=== PATIENT | male | born 1950 | race Caucasian/White ===

== ENCOUNTER 2023-12-30 21:08 | Emergency (ER) | payer OTHER, SELFPAY ==
[2023-12-30 21:14] VITALS: BP 134/88
--- NOTE | 2023-12-30 21:55 | ED.GENMED ---
History of Present Illness
General
Chief Complaint: Swelling
Time Seen by Provider: 12/30/23 21:55
Travel History
Have you had any contact with someone who has COVID-19?: No
Do you have any symptoms of coronavirus? Fever > 100 degrees, chills, cough, shortness of breath, sore throat, loss of taste or smell, muscle aches, or headache?: No
History of Present Illness
History of Present Illness:
HPI: The patient presents due to left ankle swelling. He lives in [place] and went to urgent care after he flew here (stop over in [place] and did get up to walk around in the plane). Urgent care apparently had trouble finding a pulse of the
left foot. He had a nurse evaluate him in person who could feel a pulse. He ultimately was encouraged to come here for further evaluation. states that his swelling is significantly improved currently compared to prior
EXAM:
GENERAL: Well appearing in no distress
HEENT: Moist oral mucosa
ABDOMEN: Soft with no peritoneal signs, no tenderness, elevated BMI
NEUROLOGIC: Excellent strength all extremities, no coordination deficits
PSYCHIATRIC: Appropriate mental status, normal insight and judgement
EXTREMITIES: Mild left ankle/calf edema compared to the right, no significant pitting, I did have trouble palpating the left DP pulse however this was fairly easily Doppler, the cap refill was normal bilateral feet
SKIN: No rash, no lesions
ED COURSE:
10:20 PM: I initially evaluated
NUMBER AND COMPLEXITY OF PROBLEMS ADDRESSED AT THE ENCOUNTER
� Chronic conditions affecting care: High blood pressure
� Acute Exacerbation and/or Progression of Chronic Illness: This is an acute problem
� Differential Diagnosis includes: DVT, nonspecific swelling, venous stasis, doubt traumatic injury
AMOUNT AND/OR COMPLEXITY OF DATA TO BE REVIEWED AND ANALYZED
� I performed an independent evaluation of and my interpretation is:
EKG:
CT:
X-rays:
Laboratory Studies: CBC normal, chemistries unremarkable with normal renal function
Other: Ultrasound imaging shows DVT
� Review of other/old records: No old records available for review
� Clinical information was obtained by an independent historian:
� Prescriptions/Medications Considered but not given:
� Further testing considered but not performed:
RISK OF COMPLICATIONS AND/OR MORBIDITY OR MORTALITY OF PATIENT MANAGEMENT
� Social determinants of health affecting care: Lives at home in [place], currently here to assist with [id number] on hospice
� Discussion with other providers: Discussed with radiology
� Escalation of care including admission/observation vs risk of discharge considered: Relatively low suspicion for DVT however given the recent long flight will obtain ultrasound imaging. He does have a dopplerable left DP good
cap refill. No clear evidence for arterial compromise. Ultrasound imaging shows DVT. Will start Eliquis.
Phy Exam
Physical Exam
Physical Exam:
See HPI
Scores
Heart Failure Risk
Heart Failure Risk Score: Not Applicable
Course
Orders/Labs/Results
Orders:
Orders
12/30/23 22:18
US Periph Venous LOWER Ext LT Urgent
Comment:
Reason For Exam: swelling
12/30/23 23:15
Basic Metabolic Panel Urgent
Complete Blood Count/No Diff Urgent
12/30/23 23:23
Apixaban [Eliquis] 10 mg PO NOW STA
Abnormal Lab Results
12/30/23
23:15
Glucose 165 H mg/dl
(70-99)
12/30/23 23:15
12/30/23 23:15
Vital Signs
Initial and Last Documented VS:
Initial Vital Signs
Temp Pulse Resp BP Pulse Ox
99.5 F 92 22 134/88 97
12/30/23 21:14 12/30/23 21:14 12/30/23 21:14 12/30/23 21:14 12/30/23 21:14
Last Documented Vital Signs
Temp Pulse Resp BP Pulse Ox
99.5 F 92 22 134/88 97
12/30/23 21:14 12/30/23 21:14 12/30/23 21:14 12/30/23 21:14 12/30/23 21:14
*Critical Care Note
Total Time (30-74mins, 75-104mins- exclusive of procedures): Not Applicable
ED Attending Note
-
Portions of this chart may have been created with voice recognition software.� Occasional wrong word or��sound alike� substitutions may have occurred due to the inherent limitations of voice recognition software.
Discharge Plan
Departure
Patient Disposition: Home (Routine Discharge)
Date of Disposition: 12/30/23
Time of Disposition: 23:27
Patient with high blood pressure during this ER visit?: Yes
Discharge Problem:
DVT (deep venous thrombosis)
Instructions: BLOOD PRESSURE
Prescriptions:
New
Eliquis 5 mg tablet
5 mg PO BID Qty: 70 0RF
Rx Instructions:
NOTE: TAKE TWO TABS TWICE DAILY FOR SEVEN DAYS THEN ONE TAB TWICE DAILY
Referrals:
UNKNOWN - PT DOES,NOT KNOW [Family Provider] -
Activity Restrictions/Additional Instructions:
You have an occlusive blood clot in the left posterior tibial vein and nonocclusive blood clot in the left popliteal vein. The left femoral, common femoral and proximal left greater saphenous vein are normal. Take 2 of the 5 mg Eliquis twice daily
for 7 days then take one of the 5 mg Eliquis twice daily. Follow-up with your primary care doctor in [place] for further treatment.
Interventions
Interventions:
*Risk Screen - Suicide Last Done: 12/30/23 21:14
*General Assessment Last Done: 12/30/23 22:37
*Neglect/Abuse Screening Last Done: 12/30/23 21:14
*ED COVID-19 Vaccine History Last Done: 12/30/23 22:37
ED- Cardiac Assessment Last Done: 12/30/23 22:35
ED- Pulmonary Assessment Last Done: 12/30/23 22:35
ED-Skin Assessment Last Done: 12/30/23 22:36
[2023-12-30 23:21] LABS: Hematocrit 40.8 % (39.0-52.0); Hemoglobin 14.6 g/dL (13.0-18.0); Mean Corp Hgb Conc. 35.8 g/dL (33.0-37.0); Mean Corpuscular Hgb 30.1 pg (27.0-31.0); Mean Corpuscular Volume 84.1 fL (80.0-94.0); Mean Platelet Volume 9.5 fL (7.4-10.4); Platelet Count 214 10^3/uL (130-400); Red Blood Cell Count 4.85 10^6/uL (4.70-6.10); Red Cell Dist. Width 13.2 % (11.5-14.5); White Blood Cell Count 5.5 10^3/uL (4.8-10.8)
[2023-12-30 23:42] LABS: Blood Urea Nitrogen 17 mg/dl (9-20); Calcium 9.2 mg/dl (8.4-10.2); Carbon Dioxide 25 mmol/L (22-30); Chloride 103 mmol/L (98-107); Glucose 165 mg/dl (70-99); Potassium 3.6 mmol/L (3.5-5.1); Sodium 135 mmol/L (135-145); eGFR > 60.00
[2023-12-30] MEDS: ELIQUIS 10 MG PO (23:52)
[2023-12-30 23:56] VITALS: BP 134/74
== END 2023-12-31 00:05 | disposition home or self-care (01) ==
LOC: EMR 21:08
PROVIDERS: EMERGENCY PHYSICIAN Emergency Medicine
DX: I82.442 Acute embolism and thrombosis of left tibial vein (principal); I82.432 Acute embolism and thrombosis of left popliteal vein; R03.0 Elevated blood-pressure reading, without diagnosis of hypertension
CPT/HCPCS: 99284; 80048; 85027; 93971

== ENCOUNTER 2025-08-05 12:33 | Inpatient (IN) | payer OTHER, SELFPAY ==
[2025-08-05] VITALS (22 sets, daily range): BP systolic 83–152; BP diastolic 50–107; BMI 35.6; BMI 35.7
--- NOTE | 2025-08-05 10:06 | ED.GENMED ---
History of Present Illness
<Oli Adams PA-C - Last Filed: 08/05/25 15:23>
General
Chief Complaint: Breathing Problem
Source: patient
Time Seen by Provider: 08/05/25 10:01
History of Present Illness
History of Present Illness:
74-year-old male with past medical history of hypertension and previous DVT presenting to the emergency department for evaluation with EMS after patient started to feel progressively more shortness of breath over the last 24 hours, EMS reporting
they found the patient tachypneic, hypoxic into the mid 70s and diaphoretic at time of their arrival EMS placed the patient on a nonrebreather with response to 94% and improvement of his symptoms. Patient lives in [place] and recently drove
cross-country over the last week. He does state he was wearing compression socks at that time. He denies any chest pain but does note that he is feels that he is unable to take a deep inspiration. He denies any fevers, chills, rigors, lower
extremity edema or pain, current chest pain, palpitations or any other concerns. Patient is currently not on any anticoagulation noting he was taken off of Eliquis back in October 2024.
Past History
<Oli Adams PA-C - Last Filed: 08/05/25 15:23>
Past History
ED Past Medical History: HTN
ED Past Surgical History: None
Social History
Tobacco: Non-smoker
Alcohol: Occasional
Drug: None
Personal:
Living: with family
Review of Systems
<Oli Adams PA-C - Last Filed: 08/05/25 15:23>
Review of Systems
All Other Systems: ROS reviewed and negative except as documented in HPI and ROS
Phy Exam
<Oli Adams PA-C - Last Filed: 08/05/25 15:23>
Physical Exam
Physical Exam:
GENERAL: Alert , tachypneic with accessory muscle use but speaking full sentences
HEAD: Normocephalic atraumatic
EYE: clear conjunctiva
NECK: Supple
ENT: o/p clr, mmm.
CARDIAC: Regular rate and rhythm .
LUNGS: Clear breath sounds bilaterally, no wheezing rales or rhonchi, increased work of breathing, accessory muscle use, O2 sat in the mid 80s when nonrebreather was removed
ABDOMEN: Soft, without focal tenderness, no r/g, no cvat
NEUROLOGICAL: Alert and oriented
SKIN: Warm and dry, skin intact.
MUSCULOSKELETAL: No edema, well perfused.
PSYCH: Normal and appropriate interaction.
Scores
<Oli Adams PA-C - Last Filed: 08/05/25 15:23>
Heart Failure Risk
Heart Failure Risk Score: Not Applicable
Heart Score for Chest Pain Patients
STEMI patient?: Not applicable
Withdrawal Assessment of Alcohol
Withdrawal Assessment Completed?: Not applicable
Course
<Oli Adams PA-C - Last Filed: 08/05/25 15:23>
Orders/Labs/Results
Orders:
Orders
08/05/25 10:02
Electrocardiogram (*1) Urgent
Reason for Study: Shortness of Breath
CT Chest PE Study Urgent
Comment:
Reason For Exam: hypoxia, tachypnea, hx DVT
EKG- Treatment ONCE
08/05/25 10:07
Complete Blood Count/With Diff Urgent
Comprehensive Metabolic Panel Urgent
NT-proBNP Urgent
Troponin I Urgent
Venous Blood Gas Urgent
%Oxygen/Room Air: RA
08/05/25 11:06
Echo 2D MMode Color/Doppler Urgent
Reason for Study: PE
08/05/25 11:07
Heparin 8,900 units IV NOW STA
Nursing to Place Non Medication Order As Directed
Physician Order: PTT 6 hours after initial start of Heparin infusion
Above order entered?: Yes
08/05/25 11:15
Heparin 43086 Units/250 ml 25,000 units in 250 ml IV PER PROTOCOL
Weight to be used for heparin protocol in kilograms (kg):: 111.3
Protocol:: DVT/PE
PTT Goal Range to be used:: PTT 73 to 111 seconds
Order type:: Initial
INITIAL Infusion Dose (UNITS/KG/hr) & then follow protocol:: 18 units/kg/hr
Infusion Dose in UNITS/hr & then follow protocol (UNITS/hr):: 2,000
INFUSION RATE in mL/hr & then follow protocol (mL/hr):: 20
For DVT/PE algorithm, re-bolus for low PTT?: Yes
PTT less than or equal to 64 seconds:: Re-bolus 80 units/kg (max 10,000units). Increase by 500 units/hr
(+ 5mL/hr)
PTT 64.1 to 72.9 seconds:: Re-bolus 40 units/kg (max 5,000 units). Increase by 200 units/hr
(+ 2mL/hr)
PTT 73 to 111 seconds:: Target Range. No change in rate.
PTT 111.1 to 130.9 seconds:: Decrease rate by 200 units/hr (- 2 mL/hr)
PTT 131 to 199.9 seconds:: HOLD for 1 hr. Then decrease by 400 units/hr (- 4mL/hr)
PTT greater than or equal to 200 seconds:: HOLD for 2 hrs & Notify Provider. Then decrease by 500 units/hr
(- 5mL/hr)
Lab follow-up:: Each change, PTT q6h until 2 consecutive are therapeutic. Then
PTT daily.
08/05/25 11:16
PTT Urgent
Comment: Obtain baseline before beginning heparin infusion if not already collected
Prothrombin Time Urgent
Comment: ADD ON
08/05/25 11:27
Heparin 8,900 units IV PRN PRN
08/05/25 11:29
Heparin 4,500 units IV PRN PRN
08/05/25 12:07
Admit/Transfer Patient As Directed
Co-Sign Provider:
Level of Care: Inpatient admission
Assign to:: IMU- Intermediate Care
Physician / Group: jenna damon
Diagnosis: resp failure, PE
Reason for Hospitalization: resp failure, PE
Expected length of stay greater than two midnights?: Yes
ELOS- Estimated Length of Stay in days: 5
I certify the patient meets the requirements for IP care: Yes
08/05/25 12:08
PRN Pain Medication Management As Directed
May give lesser potent ordered pain med per pt: Yes
preference::
Protocol:: Medication orders for pain may be administered in a
manner that supports deferring to patient preference
when the pt is:
- Requesting an ordered lesser potent pain medication.
Least to most potent pain medications are defined
as: acetaminophen < NSAID < tramadol < opioids
(morphine, oxycodone, hydromorphone).
- Requesting a lesser dose of the same medication IF
ORDERED.
- Requesting a less intrusive route of administration
if both routes are prescribed by the provider (PO <
IV).
08/05/25 12:09
Code Status As Directed
Resuscitation Status: Full Code
08/05/25 12:13
[employer] Consult Routine
Consulting Provider: Steve Persaud
Was physician already notified: Yes
08/05/25 13:07
Acetaminophen [Tylenol] 650 mg PO Q6HPRN PRN
Bisacodyl [Dulcolax] 10 mg RECTAL [id number] PRN
Dextrose 50%-Water [Dextrose 50% Syringe] 12.5 grams IV [id number] PRN
Docusate W/Senna [Senokot-S] 1 tablet PO BIDPRN PRN
Glucagon [GlucaGen] 1 mg IM PRN PRN
Ondansetron Injectable [Zofran] 4 mg IV Q6HPRN PRN
Polyethylene Glycol Powder [Miralax] 17 grams PO DAILYPRN PRN
08/05/25 13:07
Activity As Directed
Activity Level: Ambulate
Bedside Glucose Monitoring As Directed
Frequency: AC&HS
Additional Instructions:: Change to q6h if pt on TPN, tube feeding or not eating
Vital Signs As Directed
Frequency: Per unit guidelines
08/05/25 16:30
Insulin Aspart Corrective Mod [Novolog Flexpen-Moderate Resistance] See Protocol SC AC
08/05/25 17:52
PTT Urgent
08/06/25 06:00
Basic Metabolic Panel IN AM
Complete Blood Count/No Diff IN AM
Glycohemoglobin (HgbA1c) IN AM
Magnesium IN AM
Vitamin B12 IN AM
Abnormal Lab Results
08/05/25
10:07
WBC 12.8 H 10^3/uL
(4.8-10.8)
Abs Immat Gran (auto) 0.1 H 10^3/uL
(0-0.05)
Absolute Neuts (auto) 9.7 H 10^3/uL
(1.4-6.5)
Absolute Monos (auto) 0.8 H 10^3/uL
(0.1-0.6)
Neutrophils % 75.4 H %
(42.2-75.2)
Lymphocytes % 16.0 L %
(20.5-51.1)
BUN 23 H mg/dl
(9-20)
Glucose 267 H mg/dl
(70-99)
Troponin I 0.051 H* ng/ml
08/05/25 10:07
08/05/25 10:07
Vital Signs
Initial and Last Documented VS:
Initial Vital Signs
Temp Pulse Resp BP Pulse Ox
98.9 F 108 28 152/107 76
08/05/25 09:59 08/05/25 09:59 08/05/25 09:59 08/05/25 09:59 08/05/25 09:59
Last Documented Vital Signs
Temp Pulse Resp BP Pulse Ox
98.9 F 92 18 151/82 95
08/05/25 09:59 08/05/25 12:45 08/05/25 12:45 08/05/25 11:08 08/05/25 15:05
<Eduarda Baptiste, - Last Filed: 08/05/25 10:20>
Orders/Labs/Results
Orders:
Orders
08/05/25 10:02
Electrocardiogram (*1) Urgent
Reason for Study: Shortness of Breath
CT Chest PE Study Urgent
Comment:
Reason For Exam: hypoxia, tachypnea, hx DVT
EKG- Treatment ONCE
08/05/25 10:07
Complete Blood Count/With Diff Urgent
Comprehensive Metabolic Panel Urgent
NT-proBNP Urgent
Troponin I Urgent
Venous Blood Gas Urgent
%Oxygen/Room Air: RA
08/05/25 11:06
Echo 2D MMode Color/Doppler Urgent
Reason for Study: PE
08/05/25 11:07
Heparin 8,900 units IV NOW STA
Nursing to Place Non Medication Order As Directed
Physician Order: PTT 6 hours after initial start of Heparin infusion
Above order entered?: Yes
08/05/25 11:15
Heparin [id number] Units/250 ml 25,000 units in 250 ml IV PER PROTOCOL
Weight to be used for heparin protocol in kilograms (kg):: 111.3
Protocol:: DVT/PE
PTT Goal Range to be used:: PTT 73 to 111 seconds
Order type:: Initial
INITIAL Infusion Dose (UNITS/KG/hr) & then follow protocol:: 18 units/kg/hr
Infusion Dose in UNITS/hr & then follow protocol (UNITS/hr):: 2,000
INFUSION RATE in mL/hr & then follow protocol (mL/hr):: 20
For DVT/PE algorithm, re-bolus for low PTT?: Yes
PTT less than or equal to 64 seconds:: Re-bolus 80 units/kg (max 10,000units). Increase by 500 units/hr
(+ 5mL/hr)
PTT 64.1 to 72.9 seconds:: Re-bolus 40 units/kg (max 5,000 units). Increase by 200 units/hr
(+ 2mL/hr)
PTT 73 to 111 seconds:: Target Range. No change in rate.
PTT 111.1 to 130.9 seconds:: Decrease rate by 200 units/hr (- 2 mL/hr)
PTT 131 to 199.9 seconds:: HOLD for 1 hr. Then decrease by 400 units/hr (- 4mL/hr)
PTT greater than or equal to 200 seconds:: HOLD for 2 hrs & Notify Provider. Then decrease by 500 units/hr
(- 5mL/hr)
Lab follow-up:: Each change, PTT q6h until 2 consecutive are therapeutic. Then
PTT daily.
08/05/25 11:16
PTT Urgent
Comment: Obtain baseline before beginning heparin infusion if not already collected
Prothrombin Time Urgent
Comment: ADD ON
08/05/25 11:27
Heparin 8,900 units IV PRN PRN
08/05/25 11:29
Heparin 4,500 units IV PRN PRN
08/05/25 12:07
Admit/Transfer Patient As Directed
Co-Sign Provider:
Level of Care: Inpatient admission
Assign to:: IMU- Intermediate Care
Physician / Group: jenna damon
Diagnosis: resp failure, PE
Reason for Hospitalization: resp failure, PE
Expected length of stay greater than two midnights?: Yes
ELOS- Estimated Length of Stay in days: 5
I certify the patient meets the requirements for IP care: Yes
08/05/25 12:08
PRN Pain Medication Management As Directed
May give lesser potent ordered pain med per pt: Yes
preference::
Protocol:: Medication orders for pain may be administered in a
manner that supports deferring to patient preference
when the pt is:
- Requesting an ordered lesser potent pain medication.
Least to most potent pain medications are defined
as: acetaminophen < NSAID < tramadol < opioids
(morphine, oxycodone, hydromorphone).
- Requesting a lesser dose of the same medication IF
ORDERED.
- Requesting a less intrusive route of administration
if both routes are prescribed by the provider (PO <
IV).
08/05/25 12:09
Code Status As Directed
Resuscitation Status: Full Code
08/05/25 12:13
[employer] Consult Routine
Consulting Provider: Steve Persaud
Was physician already notified: Yes
08/05/25 13:07
Acetaminophen [Tylenol] 650 mg PO Q6HPRN PRN
Bisacodyl [Dulcolax] 10 mg RECTAL [id number] PRN
Dextrose 50%-Water [Dextrose 50% Syringe] 12.5 grams IV [id number] PRN
Docusate W/Senna [Senokot-S] 1 tablet PO BIDPRN PRN
Glucagon [GlucaGen] 1 mg IM PRN PRN
Ondansetron Injectable [Zofran] 4 mg IV Q6HPRN PRN
Polyethylene Glycol Powder [Miralax] 17 grams PO DAILYPRN PRN
08/05/25 13:07
Activity As Directed
Activity Level: Ambulate
Bedside Glucose Monitoring As Directed
Frequency: AC&HS
Additional Instructions:: Change to q6h if pt on TPN, tube feeding or not eating
Vital Signs As Directed
Frequency: Per unit guidelines
08/05/25 16:30
Insulin Aspart Corrective Mod [Novolog Flexpen-Moderate Resistance] See Protocol SC AC
08/05/25 17:52
PTT Urgent
08/06/25 06:00
Basic Metabolic Panel IN AM
Complete Blood Count/No Diff IN AM
Glycohemoglobin (HgbA1c) IN AM
Magnesium IN AM
Vitamin B12 IN AM
Abnormal Lab Results
08/05/25
10:07
WBC 12.8 H 10^3/uL
(4.8-10.8)
Abs Immat Gran (auto) 0.1 H 10^3/uL
(0-0.05)
Absolute Neuts (auto) 9.7 H 10^3/uL
(1.4-6.5)
Absolute Monos (auto) 0.8 H 10^3/uL
(0.1-0.6)
Neutrophils % 75.4 H %
(42.2-75.2)
Lymphocytes % 16.0 L %
(20.5-51.1)
BUN 23 H mg/dl
(9-20)
Glucose 267 H mg/dl
(70-99)
Troponin I 0.051 H* ng/ml
08/05/25 10:07
08/05/25 10:07
Vital Signs
Initial and Last Documented VS:
Initial Vital Signs
Temp Pulse Resp BP Pulse Ox
98.9 F 108 28 152/107 76
08/05/25 09:59 08/05/25 09:59 08/05/25 09:59 08/05/25 09:59 08/05/25 09:59
Last Documented Vital Signs
Temp Pulse Resp BP Pulse Ox
98.9 F 92 18 151/82 95
08/05/25 09:59 08/05/25 12:45 08/05/25 12:45 08/05/25 11:08 08/05/25 15:05
<Oli Adams PA-C - Last Filed: 08/05/25 15:23>
MDM/Problems Addressed
Differential Diagnosis Includes:
PE
Pneumonia
PTX
Pericardial Effusion
ACS
Pericarditis/Myocarditis
COVID/Flu
MDM/Problems Addressed:
74-year-old male presenting to the ER for evaluation of severe shortness of breath, noted to be hypoxic and tachypneic, currently on a nonrebreather with improvement of symptoms. When nonrebreather was removed patient's oxygen saturation started to
climb back into the mid to low 80s. Will place on mid flow. Stat CTA of the chest ordered given patient's previous history of DVT combined with his recent cross-country travel. Given presenting symptoms anticipate admission.
Chronic conditions affecting care: Other (Previous DVT)
<Oli Adams PA-C - Last Filed: 08/05/25 15:23>
*Radiology
Radiology exam reviewed: preliminary read by ED provider and radiology read reviewed
*Pulse Oximetry
SaO2: 84
Oxygen Mode of Delivery: Room air
Patient hypoxic: yes
*Neighborhood Worker Interpretation
Rate: tachycardiac
Heart Rate: 101
Rhythm: sinus
*Critical Care Note
Total Time (30-74mins, 75-104mins- exclusive of procedures): 40
comment:
Critical care statement: A total of 40 minutes of critical care time was provided for this patient. This includes management of unstable vital signs, evaluation of the patient at bedside, reviewing the patient's pertinent medical records, discussion
with consultants, review of old EKGs and review of pertinent medical records. This time with separate from time utilized to perform the aforementioned documented procedures
Data Reviewed
Review of Other/Old Records Reveals: Labs and Records
<Oli Adams PA-C - Last Filed: 08/05/25 15:23>
Comment
Comment:
Due to the patient's severity on presentation I accompanied him to CT scan which based off my initial preliminary read showed bilateral pulmonary artery emboli. A PERT alert was called. Radiology did notify me that there is severe clot burden and
saddle emboli but no evidence for right heart strain. I did order a 2D echocardiogram to further evaluate. Pulmonary aware and will see in consult. Hospitalist team was also notified and will come to see the patient and accepts for continued
evaluation and treatment. Heparin bolus and drip ordered.
Patient Management
Discussion with other providers: Hospitalist, [employer] Supervisor and Radiologist
ED Attending Note
<Oli Adams PA-C - Last Filed: 08/05/25 15:23>
-
Portions of this chart may have been created with voice recognition software.� Occasional wrong word or��sound alike� substitutions may have occurred due to the inherent limitations of voice recognition software.
<Eduarda Baptiste DO - Last Filed: 08/05/25 10:20>
ED Attending Note
Patient seen and examined by attending physician: Yes
I performed the substantive portion of visit, reviewed & personally made and approve the management plan that is documented in note by myself or ROSEMARY.: Yes
I performed a history and physical exam of patient and discussed management with resident, I reviewed resident's note and agree with documented findings and plan of care.: Yes
ED Attending Note:
74-year-old male presents to the ER for evaluation of severe shortness of breath. Prehospital personnel found him to be hypoxic in the 70s on room air on their arrival with significant increased work of breathing. Patient placed on nonrebreather
and transport. He does have a prior history of PE but is not currently on anticoagulation. He recently drove cross-country from [place]. He denies any calf pain. Vital signs reviewed, patient is awake, alert, obese, appears older than stated
age, increased work of breathing with conversational dyspnea although patient continues to speak frequently throughout exam, decreased air movement throughout without wheezes rales or rhonchi, heart regular rate and rhythm no murmurs or ectopy,
abdomen is soft and obese, extremities without edema, GCS is 15. Patient transition to high flow nasal cannula. Will obtain CT PE. Anticipate admission regardless due to severe hypoxemia. Awaiting results
Discharge Plan
Departure
Patient Disposition: Admit
Date of Disposition: 08/05/25
Time of Disposition: 11:09
Presentation/result/management discussed w/ accepting MD/DO: Hospitalist
Discharge Problem:
Pulmonary embolism
Interventions
Interventions:
*Risk Screen - Suicide Last Done: 08/05/25 09:59
*General Assessment Last Done: 08/05/25 09:59
*Neglect/Abuse Screening Last Done: 08/05/25 09:59
*ED COVID-19 Vaccine History Last Done: 08/05/25 13:02
*Nursing Disposition Last Done: 08/05/25 13:05
ED- Cardiac Assessment Last Done: 08/05/25 10:21
ED- Pulmonary Assessment Last Done: 08/05/25 10:21
Discharge Date and Time
Discharge Date/Time: 08/05/25 13:06
[2025-08-05 10:19] LABS: Hematocrit 45.2 % (39.0-52.0); Hemoglobin 15.0 g/dL (13.0-18.0); Mean Corp Hgb Conc. 33.2 g/dL (33.0-37.0); Mean Corpuscular Volume 90.4 fL (80.0-94.0); Nucleated Red Blood Cells % 0 % (-); Platelet Count 221 10^3/uL (130-400); Red Cell Dist. Width 13.1 % (11.5-14.5)
[2025-08-05 10:20] LABS: Venous Blood Gas B.E. -1.3 mmol/L (-4 to +4); Venous Blood Gas O2 Sat % 75.8 %
[2025-08-05 10:29] LABS: ALT (SGPT) 16 U/L (0-50); AST (SGOT) 22 U/L (17-59); Albumin 4.4 g/dl (3.5-5.0); Alkaline Phosphatase 70 U/L (38-126); Blood Urea Nitrogen 23 mg/dl (9-20); Calcium 9.7 mg/dl (8.4-10.2); Carbon Dioxide 23 mmol/L (22-30); Chloride 103 mmol/L (98-107); Estimated Creatinine Clearance 65 ml/min; Glucose 267 mg/dl (70-99); Potassium 4.5 mmol/L (3.5-5.1); Sodium 138 mmol/L (135-145); Total Protein 7.6 g/dl (6.3-8.2); eGFR > 60.00
[2025-08-05 10:44] LABS: Troponin I 0.051 ng/ml
--- NOTE | 2025-08-05 11:03 | ED TECH ---
PERT ALERT CALLED @1103 per PA Jessee Adams
--- NOTE | 2025-08-05 11:29 | HPS.HSE ---
Family Physician
-
Family Physician: Emiliano Greco, DO
Chief Complaint
-
SOB
History of Present Illness
74-year-old male with a past medical history of left lower extremity DVT in December 2023, hypertension, diabetes, and obesity who presents with a 5-day history of shortness of breath. Patient drove cross-country from [place] to [place], and
reached this area approximately 13 days ago. He reports having 5 days of shortness of breath, which has since worsened. Associated symptoms include lightheadedness. He denies chest pain. Denies nausea, denies vomiting. No fever. He was treated
with Eliquis for his previous left lower extremity DVT in December 2023, and stopped Eliquis in October 2024.
Medical History
Past Medical History
Past Medical History: Reports Other
Additional Past Medical History:
Left lower extremity DVT December 2023
Essential hypertension
Right torn Achilles tendon
Type 2 diabetes
Obesity
Past Surgical History: Reports Other
Additional Past Surgical History:
Right foot surgery
Right eye surgery
Shrapnel removal
Social History
Tobacco: Former Smoker
Alcohol: Occasional
Drug: None
Personal:
Family History
Family History: Not pertinent
Allergies / Home Medications
Allergies reflects when Allergies were last updated in [facility].
Home Medications with original date entered in [facility]
Allergy/Medication List:
Allergies
Allergy/AdvReac Type Severity Reaction Status Date / Time
No Known Allergies Allergy Verified 08/05/25 10:06
Home Medications Table - record
�Medication �Instructions �Recorded �Confirmed
ascorbic acid (vitamin C) 500 mg 500 mg PO DAILY Supplement 08/05/25 08/05/25
tablet (Vitamin C)
cholecalciferol (vitamin D3) 25 25 mcg PO DAILY Supplement 08/05/25 08/05/25
mcg (1,000 unit) tablet (Vitamin
D3)
glipizide 10 mg tablet, extended 10 mg PO DAILY Diabetes 08/05/25 08/05/25
release 24 hr
glucosamine sulf dipot 1 cap PO DAILY Supplement 08/05/25 08/05/25
chlr,msm,chond 550 mg-C 30 mg-crystal
1 mg capsule (Glucosamine
Chondroitin)
hydrochlorothiazide 12.5 mg tablet 12.5 mg PO DAILY Blood Pressure 08/05/25 08/05/25
losartan 50 mg tablet 50 mg PO DAILY Blood Pressure 08/05/25 08/05/25
plant stanol laura 450 mg capsule 450 mg PO DAILY Supplement 08/05/25 08/05/25
(Cholest Off Plus)
therapeutic multivitamin 1 tab PO DAILY Supplement 08/05/25 08/05/25
Review of Systems
-
A 12 point ROS was completed and negative except as noted: Yes
Physical Exam
Vital Signs
Vital Signs
Temp Pulse Resp BP Pulse Ox
98.9 F 102 22 152/107 84
08/05/25 09:59 08/05/25 10:15 08/05/25 10:15 08/05/25 09:59 08/05/25 10:16
Physical Exam
General: Respiratory Distress
HEENT: NormoCephalic, Anicteric and Moist mucous membranes
Respiratory: Clear
Cardiac: S1/S2 and Tachycardia
GI: Soft, Non Tender and Non Distended
Musculoskeletal: No Clubbing, No Cyanosis and Edema, Right Lower Extremity
Laboratory Results
-
08/05/25 10:07
08/05/25 10:07
Laboratory Results
Total Bilirubin 1.3 mg/dl (0.2-1.3) 08/05/25 10:07
AST 22 U/L (17-59) 08/05/25 10:07
ALT 16 U/L (0-50) 08/05/25 10:07
Alkaline Phosphatase 70 U/L (38-126) 08/05/25 10:07
Troponin I 0.051 ng/ml H* 08/05/25 10:07
Impression/Plan
-
HPI: 74-year-old male with a past medical history of left lower extremity DVT in December 2023, hypertension, diabetes, and obesity who presents with a 5-day history of shortness of breath. Patient drove cross-country from [place] to [place],
and reached this area approximately 13 days ago. He reports having 5 days of shortness of breath, which has since worsened. Associated symptoms include lightheadedness. He denies chest pain. Denies nausea, denies vomiting. No fever. He was
treated with Eliquis for his previous left lower extremity DVT in December 2023, and stopped Eliquis in October 2024.
#Acute hypoxic respiratory failure
#Acute bilateral PE with severe clot burden
#History of acute left lower extremity DVT in December [address] shows 'Multiple bilateral pulmonary emboli as described above. Severe clot burden. No right heart strain'
Start IV heparin drip, consult pulmonology, follow-up urgent echocardiogram
Discussed with patient, he would likely need anticoagulation lifelong
Currently requiring 15 L of oxygen, wean as tolerated
Encourage incentive spirometry use
#Leukocytosis
Patient is afebrile, no signs or symptoms of infection
#Type 2 diabetes
Check hemoglobin A1c, continue home glipizide 10 mg daily, carb controlled diet, add sliding scale insulin
#Essential hypertension
Continue hydrochlorothiazide 12.5 mg daily, losartan 50 mg daily
#Obesity due to excess calories
Affects all aspects of care
DVT prophylaxis�heparin drip
Updated at bedside 08/05
Total time spent to see the patient on the floor, examine the patient, review data and lab results, discuss treatment plan with patient, nursing staff around 78 minutes.
[2025-08-05 11:33] LABS: APTT 25.5 Sec (23.4-35.0)
[2025-08-05] MEDS: HEPARIN 8900 UNITS IV (11:51)
[2025-08-05] MEDS: HEPARIN 25000 UNITS/250 ML IV (11:52)
--- NOTE | 2025-08-05 11:56 | CON.INTV ---
Consultation
Consultation Request
Date/Time Consultation Requested: 08/05/2025
Date/Time Consultation Performed: 08/05/2025
Requesting Provider: Oli Adams PA-C
Performing Provider: Dr. Cordova
Reason for Consultation: PERT alert
Medical History
-
Chief Complaint: SOB
History of Present Illness:
74-year-old male with a past medical history of DM type II, hypertension, history of PVCs, former tobacco use and left lower extremity DVT who presents with SOB. The patient normally lives in [place], and the patient and his , Taylor,
decided to come here to [place] to go to the 's brother's home as he recently from pancreatic cancer. They were dealing with his cremated body. The patient and his were driving cross-country from 07/14 until they arrived
here on 07/24. Patient says that they drove 3700 miles total and took a break about once every 500 miles. He became short of breath about 4-5 days ago, with no chest pain, leg pain, presyncopal events or shoulder/back pain. His shortness of breath
at first was not too bad and would improve with short breaks but it progressively worsened and this is what brought him here to the hospital. In the ER he was afebrile with pulse rate 108, respiratory rate 22�28, BP 152/107, and initially
saturating 76% on room air which improved to 93% on mid flow nasal cannula at 15L/min. CTA chest obtained showing multiple bilateral pulmonary emboli with severe clot burden without evidence of RV strain. Labs showed mild leukocytosis of 12.8,
glucose 267, troponin 0.051, and proBNP 1140. He was started on a heparin drip in the ER. A PERT alert was called and patient admitted to the IMU for further care. Evening Sitter/pulmonary service consulted for additional management/recommendations.
When I saw the patient he was resting in bed with his , Taylor, present at bedside. Heart rate 88, BP 149/104 and saturating 94% on mid flow nasal cannula at 15 L/min. He denies shortness of breath at rest but he does feel winded with
exertion. Also currently denies chest pain, VANCE, abdominal pain, nausea, fevers or chills. He denies a personal history of a pulmonary embolism although he did have a left lower extremity clot seen here at in December 2023 I was treated with
Eliquis for about 10 months before being taken off after repeat ultrasound showed resolution of clot. He denies a family history of a DVT/PE. He has no personal history of malignancy.
PMHx: LLE DVT, DM type II, hypertension, history of PVCs, former tobacco smoker, history of torn Achilles (right)
PSHx: Non-contributory
Past Medical History
Past Medical History: Other (Above as per HPI)
Past Surgical History: Other (Above as per HPI)
Social History
Tobacco: Former Smoker (Smoked <1 PPD for total of 10-12 years, quit 40 years ago)
Alcohol: Occasional (Few drinks during the week)
Drug: None
Personal:
Living: With Family ( = Taylor)
Family History
Family History: CAD (Father: History of AK) and Other (Mother: COPD; Sister: brain aneurysm)
Allergies / Home Medications
Allergies
Allergy/AdvReac Type Severity Reaction Status Date / Time
No Known Allergies Allergy Verified 08/05/25 10:06
Home Medications
�Medication �Instructions �Recorded �Confirmed �Last Taken �Type
ascorbic acid (vitamin C) 500 mg 500 mg PO DAILY 08/05/25 08/05/25 08/04/25 History
tablet (Vitamin C)
cholecalciferol (vitamin D3) 25 25 mcg PO DAILY 08/05/25 08/05/25 08/04/25 History
mcg (1,000 unit) tablet (Vitamin
D3)
glipizide 10 mg tablet, extended 10 mg PO DAILY 08/05/25 08/05/25 08/04/25 History
release 24 hr
glucosamine sulf dipot 1 cap PO DAILY 08/05/25 08/05/25 08/04/25 History
chlr,msm,chond 550 mg-C 30 mg-crystal
1 mg capsule (Glucosamine
Chondroitin)
hydrochlorothiazide 12.5 mg tablet 12.5 mg PO DAILY 08/05/25 08/05/25 08/04/25 History
losartan 50 mg tablet 50 mg PO DAILY 08/05/25 08/05/25 08/04/25 History
plant stanol laura 450 mg capsule 450 mg PO DAILY 08/05/25 08/05/25 08/04/25 History
(Cholest Off Plus)
therapeutic multivitamin 1 tab PO DAILY 08/05/25 08/05/25 08/04/25 History
Review of Systems
-
History Source: Patient
All other systems: Negative unless noted
Vitals / Labs / Diagnostic Testing
Vital Signs
Temp Pulse Resp BP Pulse Ox
98.9 F 102 22 152/107 84
08/05/25 09:59 08/05/25 10:15 08/05/25 10:15 08/05/25 09:59 08/05/25 10:16
Lab Data
08/05/25 10:07
08/05/25 10:07
Laboratory Results
08/05/25
11:16
APTT 25.5
Diagnostic Testing:
Physical Exam
-
HEENT: Normocephalic and Anicteric
Cardiovascular: S1/S2 and Peripheral Edema (negative)
Respiratory: Wheeze (negative), Rales (negative), Rhonchi (negative) and Non-Labored Respirations
GI: Soft, Distended (Abdominal obesity), Non Tender and Normal Bowel Sounds
Neurology: AO x 3 and Tremors (negative)
Skin: Warm and Dry
General: Respiratory Distress (negative), Comfortable, Fever (negative) and Chills (negative)
Assessment
-
Assessment: 74-year-old male with a past medical history of DM type II, hypertension, history of PVCs, former tobacco use and left lower extremity DVT who presents with SOB. The patient normally lives in [place], and the patient and his ,
Taylor, decided to come here to [place] to go to the 's brother's home as he recently from pancreatic cancer. They were dealing with his cremated body. The patient and his were driving cross-country from 07/14 until they
arrived here on 07/24. Patient says that they drove 3700 miles total and took a break about once every 500 miles. He became short of breath about 4-5 days ago, with no chest pain, leg pain, presyncopal events or shoulder/back pain. His shortness
of breath at first was not too bad and would improve with short breaks but it progressively worsened and this is what brought him here to the hospital. In the ER he was afebrile with pulse rate 108, respiratory rate 22�28, BP 152/107, and initially
saturating 76% on room air which improved to 93% on mid flow nasal cannula at 15L/min. CTA chest obtained showing multiple bilateral pulmonary emboli with severe clot burden without evidence of RV strain. Labs showed mild leukocytosis of 12.8,
glucose 267, troponin 0.051, and proBNP 1140. He was started on a heparin drip in the ER. A PERT alert was called and patient admitted to the IMU for further care. Evening Sitter/pulmonary service consulted for additional management/recommendations.
Chronic conditions [employer]: LLE DVT, DM type II, hypertension, history of PVCs, former tobacco smoker, history of torn Achilles (right)
Impression:
#Submassive PE with high risk features including RV strain (PESI score 105 � class III, intermediate risk: 3.2 - 7.1% 30-day mortality) � likely provoked from recent cross-country trip
#Acute respiratory failure with hypoxia + SOB due to above
#History of LLE DVT (12/2023) involving popliteal vein + PT vein, treated with Eliquis for approximately 10 months
#DM type II complicated by hyperglycemia
#Obesity (BMI: 35.6)
#Former tobacco smoker with 5-6 pack year history, quit approximately 40 years ago
#History of PVCs
#Hypertension
Plan:
- Patient recently drove cross-country and has been experiencing worsening SOB over the last 24 hours with CTA chest showing a bilateral pulmonary embolism (worse on the left side) with RV strain
- He has both radiographic and chemical evidence of RV strain
- Echo is pending ---> if RV is hypocontractile or if PA pressures are markedly elevated then would recommend catheter directed thrombolysis +/- embolectomy (of left main PA thrombus)
- He went on a cross-country trip from 07/14 - 07/25, drove 3700 miles and only took a break approximately every 500 miles
- In the interim, need to start systemic anticoagulation
- Maintain SpO2 >90-94%, weaning down supplemental O2 as tolerated
- Recommend outpatient hematology evaluation to consider hypercoagulable testing given that this is his 2nd VTE event --> may need lifelong AC
- Maintain MAP>65 and monitor for sudden drops of SBP by >25% or sudden rise in HR >120�130 as this could mean that PE is worsening and he could be heading towards obstructive shock
- Trend troponin until it peaks
- Check lactate - if elevated then trend until <2mmol/L
- Replete electrolytes with K>4, Mg>2
- Maintain euglycemia with goal BG 140-180
- Trend H/H and transfuse if needed to keep Hb>7-8g/dL; keep plt>50k (given that he is now on heparin gtt)
- prn nebulized bronchodilators - not currently bronchospastic
- Incentive spirometer encouraged 10x per hour for at least 4 hrs a day
- DVT ppx: heparin gtt
Admitted to IMU. Pulmonary service will continue to follow along. Once echo is completed, will make decision at that time regarding CDT +/- embolectomy. If patient is only recommended anticoagulation then he will remain in IMU; otherwise if he
goes for an intervention by IR then he should come to ICU afterwards.
Total time spent today was 78 minutes for this encounter. Time includes reviewing laboratory test/imaging results, reviewing pertinent medical records, obtaining and reviewing medical history, performing an appropriate exam, ordering medications,
tests and procedures. Time also includes documentation of this encounter, coordinating patient care and communicating with other healthcare professionals. Total time does not include separately billed tests performed on this date of service.
Data:
CTA chest 08/05/2025: Multiple bilateral pulmonary emboli as described above. Severe clot burden. No right heart strain.
--- NOTE | 2025-08-05 12:22 | EDCM ---
CM reviewed chart and met with pt and his bedside in ED. They live in [place], drove here over the past week.
Staying with family in [facility].
Independent in ADLs, personal care and ambulation at baseline. Currently on O2, does not have O2 at home.
No hx VN or SNF
PCP: Emiliano Greco in [place]
Pharmacy: [facility]
Anticipate discharge home, CM chad continue to follow for any discharge planning needs.
--- NOTE | 2025-08-05 14:09 | CARDSERVLU ---
Echocardiogram with [facility] completed after protocol screening completed. Allergies verified.
Patent IV site: Right antecubital site clear
IV site flushed with 0.9% NaCl pre and post administration.
Diluted bolus method utilized to enhance visualization of ventricular nolasco.
Total volume given: _6___ mL
Patient tolerated all procedures well without complications.
[2025-08-05 15:11] LABS: INR 1.03; PT 14.0 Sec (11.4-14.6)
[2025-08-05 17:05] LABS: Troponin I 0.627 ng/ml
--- NOTE | 2025-08-05 17:54 | W.PN.UPDATE ---
Update Note
Progress Note Update
Echo resulted after cardiology reviewed. RV is dilated and hypocontractile with RV pressure + volume overload. Discussion held with IR. Decision made to bring to IR for catheter directed thrombolysis +/- embolectomy. I discussed this with the
patient and he is agreeable. Patient's and daughter also in the room and all questions were answered. Patient remains NPO.
[2025-08-05 18:05] LABS: APTT > 200 Sec (23.4-35.0)
--- NOTE | 2025-08-05 18:30 | PTCARENOTE ---
Pt received to IMU from ED via stretcher and transferred over to bed. Pt received on 15L Midflow NC; SaO2 96%. Pt weaned to 6L Midflow NC; SaO2 95%. ECHO performed at bedside. Heparin gtt infusing @ 2000 units.hr. PTT resulted > 200. Held per order.
Report given to IR for catheter directed lysis. Order for ICU after procedure.
--- NOTE | 2025-08-05 19:19 | W.PN.IRAD.PR ---
Procedure Note
-
Pulm arteriography shows greater burden of emboli on L as seen prev CTA. Mean PA pressure 23 bilaterally. CDT initiated with catheter in L pulm art at 1 mg/hr. Will restart heparin at 2000pm at 500units/hr via peripheral IV. The infusion catheter is
occlusive in the 7 Fr CF vein sheath, no sheath infusion. No immediate complications.
[2025-08-05] MEDS: CATHFLO/ACTIVASE 1000 MG INF CATH (19:30)
[2025-08-05 20:07] LABS: Glucose - Point of Care 168 mg/dl (70-99)
--- NOTE | 2025-08-05 20:56 | PTCARENOTE ---
RN transported patient from IR at start of shift, assisted by 2nd RN. Bedside report provided by IR RADHA White in IR. Patient aao x3, affect pleasant, friendly. Patient restarted on Heparin gtt at 500u/hr per IR md order. Patient has TPA through R
groin access/sheath. Denies pain at this time. NSR on the monitor. + PP b/l, trace bl le edema. LS cta, pox 94% on 6L MF. BS active x4. Skin otherwise intact. at bedside. Education provided on restrictions until seen by IR tomorrow.
Understanding verbalized by both parties. Call taylor within reach, will continue to monitor patient closely.
[2025-08-05] MEDS: NOVOLOG FLEXPEN-MODERATE RESISTANCE SC (20:58)
[2025-08-05] MEDS: OFIRMEV 100 IV (21:15)
[2025-08-05 23:22] LABS: Glucose - Point of Care 143 mg/dl (70-99)
[2025-08-05] MEDS: DILAUDID 0.25 MG IV (23:22)
[2025-08-05] MEDS: LIDOCAINE 4% PATCH 1 PATCH TOPICAL (23:23)
[2025-08-06] VITALS (22 sets, daily range): BP systolic 76–168; BP diastolic 62–96; BMI 35.6
--- NOTE | 2025-08-06 00:37 | PTCARENOTE ---
Patient c/o pain to lower back. RN discussed with BRODY Parson, n.o. placed for Ofirmev. Minimal positive results noted, patient continued to c/o lower back pain. Updated BRODY, n.o. noted for Lidocaine patch to lower back as well as Dilaudid
0.25mg iv. Medications administered as ordered with positive results. Right groin site remains c/d/i, assessment unchanged since start of shift. Will continue to monitor.
[2025-08-06 00:43] LABS: Hematocrit 38.2 % (39.0-52.0); Hemoglobin 12.9 g/dL (13.0-18.0); Mean Corp Hgb Conc. 33.8 g/dL (33.0-37.0); Mean Corpuscular Volume 89.3 fL (80.0-94.0); Platelet Count 183 10^3/uL (130-400); Red Cell Dist. Width 13.0 % (11.5-14.5)
[2025-08-06 00:45] LABS: INR 1.05; PT 14.2 Sec (11.4-14.6)
[2025-08-06 00:46] LABS: APTT 35.9 Sec (23.4-35.0)
--- NOTE | 2025-08-06 01:37 | PTCARENOTE ---
Addendum entered by Catarina Chu RN 08/06/25 05:33:
Patient am labs received, hgb 13.0. Overall assessment unchanged. Call taylor within reach, will continue to monitor.
Original Note:
Received lab results. Hgb 12.9 around midnight. TT send to Dr. Jacobs notifying of patients c/o back pain and decrease of hgb >1gm. RN also updated BRODY Parson. Patient vss, no observable signs of bleeding noted at this time, dressing remains
c/d/i. Will continue to monitor patient closely.
[2025-08-06] MEDS: DILAUDID 0.25 MG IV ×2 (04:25→10:31)
[2025-08-06 04:42] LABS: Hematocrit 38.5 % (39.0-52.0); Hemoglobin 13.0 g/dL (13.0-18.0); Mean Corp Hgb Conc. 33.8 g/dL (33.0-37.0); Mean Corpuscular Volume 89.7 fL (80.0-94.0); Platelet Count 160 10^3/uL (130-400); Red Cell Dist. Width 13.1 % (11.5-14.5)
[2025-08-06] MEDS: CATHFLO/ACTIVASE 1000 MG INF CATH (04:58)
[2025-08-06 05:10] LABS: Blood Urea Nitrogen 20 mg/dl (9-20); Calcium 8.4 mg/dl (8.4-10.2); Carbon Dioxide 25 mmol/L (22-30); Chloride 109 mmol/L (98-107); Estimated Creatinine Clearance 86 ml/min; Glucose 129 mg/dl (70-99); Magnesium 2.0 mg/dl (1.6-2.3); Potassium 4.1 mmol/L (3.5-5.1); Sodium 139 mmol/L (135-145); eGFR > 60.00
[2025-08-06 05:17] LABS: Glucose - Point of Care 146 mg/dl (70-99)
[2025-08-06 05:21] LABS: Troponin I 1.660 ng/ml
[2025-08-06 05:57] LABS: Vitamin B12 409 pg/ml (239-931)
[2025-08-06 06:31] LABS: INR 1.11; PT 14.8 Sec (11.4-14.6)
[2025-08-06 06:32] LABS: APTT 29.1 Sec (23.4-35.0)
--- NOTE | 2025-08-06 06:38 | PTCARENOTE ---
Patient had 0 urine output overnight, states he is unable to urinate lying down. Bladder scan showed 526ml, bladder distension noted. Straight cathed for 500ml bloody urine, maroon color, no clots. Notified Dr. Arlene Montoya, system admin and
oncoming RNs.
[2025-08-06] MEDS: NOVOLOG FLEXPEN-MODERATE RESISTANCE SC (07:37)
[2025-08-06] MEDS: COZAAR 50 MG PO (07:45)
[2025-08-06] MEDS: GLUCOTROL XL (EXTENDED RELEASE) 10 MG PO (07:47)
[2025-08-06 08:07] LABS: Glycohemoglobin (HgbA1c) 7.4 % (4.0-5.6)
[2025-08-06] MEDS: NOVOLOG FLEXPEN-MODERATE RESISTANCE 1 UNITS SC ×3 (08:16→19:01)
[2025-08-06 08:25] LABS: Glucose - Point of Care 159 mg/dl (70-99)
--- NOTE | 2025-08-06 08:32 | W.PN.INTV ---
Today's Communication / Plan
Recommendations
- Continue heparin IV
- Pending IR for timing of removal of catheter today
- Advance diet following catheter removal
- Continue home glipizide, along with the sliding scale insulin
- Continue home losartan and hydrochlorothiazide
- Straight cath as required, monitor for hematuria, monitor hemoglobin
- PRN 0.25 mg Dilaudid q4h back pain
Assessment
-
Rafael Hernandez is a 74-year-old male with a past medical history of DM type II, hypertension, history of PVCs, former tobacco use and left lower extremity DVT who presents with SOB. The patient normally lives in [place], and the patient and his
, Taylor, decided to come here to [place] to go to the 's brother's home as he recently from pancreatic cancer. They were dealing with his cremated body. The patient and his were driving cross-country from 07/14 until
they arrived here on 07/24. Patient says that they drove 3700 miles total and took a break about once every 500 miles. He became short of breath about 4-5 days ago, with no chest pain, leg pain, presyncopal events or shoulder/back pain. His
shortness of breath at first was not too bad and would improve with short breaks but it progressively worsened and this is what brought him here to the hospital. In the ER he was afebrile with pulse rate 108, respiratory rate 22�28, BP 152/107, and
initially saturating 76% on room air which improved to 93% on mid flow nasal cannula at 15L/min. CTA chest obtained showing multiple bilateral pulmonary emboli with severe clot burden without evidence of RV strain. Labs showed mild leukocytosis of
12.8, glucose 267, troponin 0.051, and proBNP 1140. He was started on a heparin drip in the ER. A PERT alert was called and patient admitted to the IMU for further care. Golf Player Assistant/pulmonary service consulted for additional
management/recommendations. Plan/course below.
#Submassive PE with high risk features
#Acute respiratory failure with hypoxia, SOB
PE with PESI score 105 - class III (intermediate risk: 3.2 - 7.1% 30-day mortality). Likely provoked from recent cross-country trip. CTA chest on 08/05 with multiple bilateral pulmonary emboli, with L > R. Echo (08/05): RV is dilated and
hypocontractile with RV pressure + volume overload.
IR CDT procedure 08/05: 'mean PA pressure 23 bilaterally; CDT initiated with catheter in L pulm art at 1 mg/hr. The infusion catheter is occlusive in the 7 Fr CF vein sheath, no sheath infusion.' Lactate wnl (1.7).
Troponin: 0.051>0.627>1.660>
Today: BP 164/87, HR 77, RR 13, afebrile. O2 97% on 2L O2.
- Continue IV heparin
- S/p catheter directed thrombolysis w alteplase 08/05 - pending IR timing for cath removal today
- Continue to trend troponin, monitor for peak
- Maintain MAP>65, monitor for sudden drops in SBP or rise in HR
- Maintain SpO2 >90-94%, weaning down supplemental O2 as tolerated
- Incentive spirometer
- Recommend outpatient hematology evaluation re: hypercoag state; discuss need for long-term anticoagulation
#Traumatic catheterization
Bloody urine w straight cath this am. Likely traumatic, RN reported some resistance. Patient on heparin, elevated risk of bleeding from milder trauma. Retention due to position flat in bed. Hgb wnl (13); 15 on admission.
- Continue to monitor urine color
- Straight cath as needed
- Trend hgb
#Back pain
Patient with back pain from lying flat on back in bed while catheter in place for clot thrombolysis.
- Continue Dilaudid, 0.25mg q4h PRN
#Chronic
- LLE DVT(12/2023) involving popliteal vein + PT vein - treated with 10-month course of Eliquis; no home Eliquis at time of admission
- T2DM -Home glipizide (continuing); sliding scale insulin inpt
- HTN - Home losartan 50 mg; hydrochlorothiazide 2.5 mg (restarted HCTZ today, continuing losartan)
- Obesity (BMI 35.6)
- History of tobacco use (5�6-pack-year history; quit 40 years ago)
- History of PVCs
- History of torn Achilles (right)
#Global
- DVT PPx: heparin IV
- Diet: clear liquids, pending IR removal of catheter
- GI PPx: N/A
- Code: full
-Dispo: IMU level care, ICU team following
Subjective Dataa
Subjective Data
Date of Service:
Date of Service: August 06, 2025
Subjective:
Per RN, this morning patient had urinary retention and was straight cathed. There was blood in the urine. Patient complaining of back pain.
On exam this morning, patient conversant. Appears comfortable from a respiratory standpoint. Denies any chest pain or shortness of breath. With O2 NC in place. Main complaint is of back pain from lying in the flat position in bed. States that
he is not able to spontaneously void because of lying position on his back.
Review of Systems
Cardiopulmonary: Dyspnea (Denies), Chest Pain (Denies) and Other (Back pain)
Genitourinary: Other (Retention)
Objective Data
Data Reviewed
Vital Signs / I&O / Oxygen:
Vital Signs
Temp Pulse Resp BP Pulse Ox
97.5 F 77 13 164/87 97
08/06/25 07:40 08/06/25 07:45 08/06/25 03:00 08/06/25 07:45 08/06/25 07:59
Intake and Output
08/05/25 08/06/25 08/07/25
06:59 06:59 06:59
Intake Total 1680 / 1785 105 / 105
Output Total 1000 / 1000 0 / 0
Balance 680 / 785 105 / 105
SaO2 97
Nasal Cannula flow liters per 3
minute
Physical Exam
General: Pain (Complaining of back pain, lying flat on back in bed)
HEENT: Normocephalic and Anicteric
Cardiovascular: Regular Rhythm and Peripheral Edema (None)
Respiratory: Non-Labored Respirations, Accessory Resp Muscle Use (None) and Other (Nasal cannula)
GI: Soft and Non Distended
Neurology: Awake, Alert and Oriented
Skin: Warm and Dry
Labs/Micro/Reports
Lab Data
08/06/25 04:28
Laboratory Results
08/05/25 08/05/25 08/06/25
11:16 17:31 00:30
PT 14.0 14.2
INR 1.03 1.05
APTT 25.5 > 200 H* 35.9 H
08/06/25
06:12
PT 14.8 H
INR 1.11
APTT 29.1
--- NOTE | 2025-08-06 09:13 | W.PN.HOSP.TC ---
Today's Communication/Plan
-
see bold
Assessment / Plan
Assessment / Plan
HPI: 74-year-old male with a past medical history of left lower extremity DVT in December 2023, hypertension, diabetes, and obesity who presents with a 5-day history of shortness of breath. Patient drove cross-country from [place] to [place],
and reached this area approximately 13 days ago. He reports having 5 days of shortness of breath, which has since worsened. Associated symptoms include lightheadedness. He denies chest pain. Denies nausea, denies vomiting. No fever. He was
treated with Eliquis for his previous left lower extremity DVT in December 2023, and stopped Eliquis in October 2024.
#Acute hypoxic respiratory failure
#Acute bilateral PE with acute cor pulmonale due to severe clot burden
#History of acute left lower extremity DVT in December [address] shows 'Multiple bilateral pulmonary emboli as described above. Severe clot burden. No right heart strain'
Echo w/ EF 75%, dilated hypokinetic RV, elevated PA pressure
Appreciate certified art therapist & IR input, status post catheter directed thrombolysis by IR 08/05
Discussed with patient, he would likely need anticoagulation lifelong
Currently requiring 2 L of oxygen, down from 15 L of oxygen, wean as tolerated
Continue IV heparin drip, encourage incentive spirometry use
Follow-up lower extremity Dopplers
#Elevated troponin
Due to hypoxia, monitor
#Leukocytosis
Patient is afebrile, no signs or symptoms of infection
#Type 2 diabetes
Hgb A1c 7.4, continue home glipizide 10 mg daily, carb controlled diet, sliding scale insulin
#Essential hypertension
Continue hydrochlorothiazide 12.5 mg daily, losartan 50 mg daily
#Obesity due to excess calories
Affects all aspects of care
DVT prophylaxis�heparin drip
Updated at bedside 08/06
Total time spent to see the patient on the floor, examine the patient, review data and lab results, discuss treatment plan with patient, nursing staff around 45 minutes.
Physical Exam
General: Obese, no acute distress
HEENT: Normocephalic, Atraumatic, EOMI, MMM
Respiratory: Clear to Auscultation bilaterally
Cardiac: Normal S1/S2, Regular Rate and Rhythm
GI: Soft, Nontender, Nondistended, Normal Bowel Sounds
Extremities: No Clubbing, Cyanosis
Bilateral lower extremity edema, right greater than left
Neuro: Nonfocal/Grossly Intact
Anticipated Discharge: > 48 hours
Subjective/Interval History
-
Date of Service: August 06, 2025
Objective Data
-
Labs:
Laboratory Results
08/05/25 08/06/25 08/06/25
19:22 00:30 04:28
WBC Cancelled 7.1 7.0
Hgb Cancelled 12.9 L 13.0
Hct Cancelled 38.2 L 38.5 L
Plt Count Cancelled 183 160
PT 14.2
INR 1.05
APTT 35.9 H
Sodium 139
Potassium 4.1
Chloride 109 H
Carbon Dioxide 25
BUN 20
Creatinine 0.9
Glucose 129 H
Calcium 8.4
08/06/25 08/06/25 08/06/25
06:12 12:00 18:00
WBC Pending Pending
Hgb Pending Pending
Hct Pending Pending
Plt Count Pending Pending
PT 14.8 H Pending Pending
INR 1.11 Pending Pending
APTT 29.1 Pending Pending
Sodium
Potassium
Chloride
Carbon Dioxide
BUN
Creatinine
Glucose
Calcium
Vital Signs:
Vital Signs
Temp Pulse Resp BP Pulse Ox
97.5 F 78 13 165/92 98
08/06/25 07:40 08/06/25 09:00 08/06/25 09:00 08/06/25 09:00 08/06/25 09:00
I&O
08/05/25 08/06/25 08/07/25
06:59 06:59 06:59
Intake Total 1680 / 1785 315 / 315
Output Total 1000 / 1000 0 / 0
Balance 680 / 785 315 / 315
[2025-08-06] MEDS: ORETIC 12.5 MG PO (10:26)
--- NOTE | 2025-08-06 11:05 | W.PN.UPDATE ---
Update Note
Progress Note Update
74 yo male with newly diagnosed PE had PE lysis last evening in IR. H/O LLE DVT in 12/2023. Pt feeling better. VS improved. Plan to bring him down late morning/early afternoon for FU in IR
--- NOTE | 2025-08-06 11:11 | PTCARENOTE ---
Patient remains flat per bedrest restriction. Reminded of bedrest restriction & to keep extremity straight. Neurovascular assessment unchanged. at bedside. Able to drink clear liquid breakfast; 1/2 jello and apple juice. updated by
hospitalist. Pt reports low back pain 04/20; PRN IV Dilaudid provided. 2-3L NC in place, Sp02 95-98%. NSR w/ 1st degree AVB. Heparin gtt via RAC. tPA infusing via right venous sheath. Plan to go to IR today. Call taylor and tray table left within reach.
[2025-08-06 12:00] LABS: Hematocrit 39.4 % (39.0-52.0); Hemoglobin 13.2 g/dL (13.0-18.0); Mean Corp Hgb Conc. 33.5 g/dL (33.0-37.0); Mean Corpuscular Volume 88.7 fL (80.0-94.0); Platelet Count 153 10^3/uL (130-400); Red Cell Dist. Width 12.8 % (11.5-14.5)
[2025-08-06 12:01] LABS: Glucose - Point of Care 186 mg/dl (70-99)
--- NOTE | 2025-08-06 12:05 | PTCARENOTE ---
Pt off unit to IRAD.
--- NOTE | 2025-08-06 12:06 | PN.CDI ---
CDI
- -
CDI:
Physician Documentation Request
Admit Date: 08/05/25 12:33
Dear Doctor Do,
Patient admitted with acute bilateral pulmonary embolism and acute hypoxic respiratory failure.
Echo shows septal flattening, dilated right hypokinetic right ventricle and estimated PA pressure 38-43 mmHg.
Please further specify regarding the pulmonary embolism:
with cor pulmonale
without cor pulmonale
Other
Use of terms such as suspected, likely, concern for, or probable (associated with a specific diagnosis that is being evaluated, monitored, or treated as if it exists) are acceptable and can be coded in the inpatient setting, when documented at the
time of discharge.
Thank you,
Lakeisha Jovel RN, BSN
CDI Specialist
tiger text
Please use your independent medical judgment in providing your response.
[2025-08-06 12:09] LABS: INR 1.14; PT 14.9 Sec (11.4-14.6)
[2025-08-06 12:10] LABS: APTT 32.7 Sec (23.4-35.0)
[2025-08-06 12:24] LABS: Troponin I 0.884 ng/ml
--- NOTE | 2025-08-06 13:34 | PTCARENOTE ---
Pt back in room from IR. Sheath removed by IR.
--- NOTE | 2025-08-06 13:44 | W.PN.UPDATE ---
Update Note
Progress Note Update
- Lysis catheter check completed and procedure discontinued.
- New pulmonary artery pressure 28/5 mmhg (map 15), improved from 44/11 (map 23) yesterday
- Pt heart rate, bp, oxygenation all improved and qualitatively patient says he feels much better.
- 7F pigtail catheter removed over wire. 7F right groin sheath removed. Bedrest for one hour then heparin/anticoagulation can be restarted per primary team
--- NOTE | 2025-08-06 14:18 | CM ---
Addendum entered by Abram Bedoya 08/06/25 14:41:
Pricing for Eliquis. Patient said he has been on Eliquis before and it runs $20.00/month. Pharmacy is [facility] in [place].
Original Note:
PE. 08/05/25, CDT initiated w catheter in L pulmonary artery. Catheter to be removed today, then advance diet. Discharge POC: Anticipate no needs.
[2025-08-06] MEDS: REMOVE LIDOCAINE PATCH 1 PATCH REMOVE (14:29)
--- NOTE | 2025-08-06 14:29 | PTCARENOTE ---
Patient out of bed, ambulated to BR. Able to void; urine is red/maroon in color. Denies any dizziness. Slight LOMBARDI present. Sp02 mid 90s on RA. Lungs coarse at bases. Up in chair. Ordered diabetic diet. at bedside. Right groin incision intact.
Pulses intact. Pt states he feels better up in chair. Call taylor within reach. Heparin gtt restarted per PE protocol. Infusing @ 2000u/hr. Next PTT due at 2014.
[2025-08-06] MEDS: HEPARIN 25000 UNITS/250 ML IV (16:37)
[2025-08-06 19:12] LABS: Glucose - Point of Care 170 mg/dl (70-99)
--- NOTE | 2025-08-06 20:21 | PTCARENOTE ---
Received pt from previous RN. Pt OOB in the chair. Pt is AAOx3, neurovascular checks per protocol (see worklist), forgetful at times. NSR w/ 1st degree. Pt on RA O2 sat 94%, lungs diminished. BRPx1. Right groin dressing intact, old drainage. Heparin
gtt @ 2000 units (see worklist). Mouth care provided. Call taylor in reach. Safe environment maintained.
[2025-08-06 20:29] LABS: APTT 116.0 Sec (23.4-35.0)
[2025-08-06 21:34] LABS: Glucose - Point of Care 180 mg/dl (70-99)
[2025-08-06] MEDS: LIDOCAINE 4% PATCH TOPICAL (23:06)
[2025-08-07] VITALS (11 sets, daily range): BP systolic 108–141; BP diastolic 59–90; BMI 35.6
[2025-08-07 02:35] LABS: APTT 107.6 Sec (23.4-35.0)
[2025-08-07] MEDS: HEPARIN 25000 UNITS/250 ML IV (06:17)
[2025-08-07] MEDS: NOVOLOG FLEXPEN-MODERATE RESISTANCE SC (08:21)
[2025-08-07] MEDS: COZAAR 50 MG PO (08:25)
[2025-08-07] MEDS: GLUCOTROL XL (EXTENDED RELEASE) 10 MG PO (08:25)
[2025-08-07] MEDS: ORETIC 12.5 MG PO (08:25)
[2025-08-07 08:31] LABS: Glucose - Point of Care 144 mg/dl (70-99)
[2025-08-07 08:59] LABS: APTT 146.3 Sec (23.4-35.0)
[2025-08-07] MEDS: REMOVE LIDOCAINE PATCH REMOVE (09:00)
[2025-08-07 09:01] LABS: Hematocrit 37.1 % (39.0-52.0); Hemoglobin 12.4 g/dL (13.0-18.0); Mean Corp Hgb Conc. 33.4 g/dL (33.0-37.0); Mean Corpuscular Volume 88.5 fL (80.0-94.0); Platelet Count 162 10^3/uL (130-400); Red Cell Dist. Width 12.9 % (11.5-14.5)
--- NOTE | 2025-08-07 09:01 | W.PN.HOSP.TC ---
Today's Communication/Plan
-
see bold
Assessment / Plan
Assessment / Plan
HPI: 74-year-old male with a past medical history of left lower extremity DVT in December 2023, hypertension, diabetes, and obesity who presents with a 5-day history of shortness of breath. Patient drove cross-country from [place] to [place],
and reached this area approximately 13 days ago. He reports having 5 days of shortness of breath, which has since worsened. Associated symptoms include lightheadedness. He denies chest pain. Denies nausea, denies vomiting. No fever. He was
treated with Eliquis for his previous left lower extremity DVT in December 2023, and stopped Eliquis in October 2024.
#Acute hypoxic respiratory failure
#Acute bilateral PE with acute cor pulmonale due to severe clot burden
#History of acute left lower extremity DVT in December [address] shows 'Multiple bilateral pulmonary emboli as described above. Severe clot burden. No right heart strain'
Echo w/ EF 75%, dilated hypokinetic RV, elevated PA pressure
Appreciate mud jack nozzle worker & IR input, status post catheter directed thrombolysis by IR 08/05
Discussed with patient, he would likely need anticoagulation lifelong
Currently requiring 2 L of oxygen, down from 15 L of oxygen, wean as tolerated
Change IV heparin drip to Eliquis 10 mg twice a day for 7 days, then 5 mg twice a day
Follow-up lower extremity Dopplers
#Hematuria
Appreciate urology input, started on finasteride
Check renal bladder ultrasound, monitor on Eliquis
#Elevated troponin
Due to hypoxia, monitor
#Leukocytosis
Patient is afebrile, no signs or symptoms of infection
#Type 2 diabetes
Hgb A1c 7.4, continue home glipizide 10 mg daily, carb controlled diet, sliding scale insulin
#Essential hypertension
Continue hydrochlorothiazide 12.5 mg daily, losartan 50 mg daily
#Obesity due to excess calories
Affects all aspects of care
DVT prophylaxis�heparin ip
Updated at bedside 08/06
Total time spent to see the patient on the floor, examine the patient, review data and lab results, discuss treatment plan with patient, nursing staff around 50 minutes.
Physical Exam
General: Obese, no acute distress
HEENT: Normocephalic, Atraumatic, EOMI, MMM
Respiratory: Clear to Auscultation bilaterally
Cardiac: Normal S1/S2, Regular Rate and Rhythm
GI: Soft, Nontender, Nondistended, Normal Bowel Sounds
Extremities: No Clubbing, Cyanosis
Bilateral lower extremity edema, right greater than left
Neuro: Nonfocal/Grossly Intact
Anticipated Discharge: 24 - 48 hours
Subjective/Interval History
-
Date of Service: August 07, 2025
Shortness of breath resolved. Patient complaining of hematuria. No fever, no vomiting.
Objective Data
-
Labs:
Laboratory Results
08/07/25 08/07/25 08/07/25
02:15 08:24 08:39
WBC 7.3
Hgb 12.4 L
Hct 37.1 L
Plt Count 162
APTT 107.6 H 146.3 H
Sodium Pending
Potassium Pending
Chloride Pending
Carbon Dioxide Pending
BUN Pending
Creatinine Pending
Glucose Pending
Calcium Pending
Vital Signs:
Vital Signs
Temp Pulse Resp BP Pulse Ox
98.3 F 72 17 133/71 94
08/07/25 08:30 08/07/25 08:00 08/07/25 08:00 08/07/25 08:00 08/07/25 08:00
I&O
08/06/25 08/07/25 08/08/25
06:59 06:59 06:59
Intake Total 1680 / 1785 1430 / 1430
Output Total 1000 / 1000 525 / 525
Balance 619 / 785 905 / 905
--- NOTE | 2025-08-07 09:07 | PTCARENOTE ---
Rec'd pt at 0700. Pt AAOx3, follows commands, BURGOS. Tele LOC, awaiting bed. Monitor SR/1st degree AVB. Lungs CTA, pox 95% RA. +BS, abd soft/nt. Heparin gtts infusing at 1800units/hr. PTT drawn and sent, Heparin placed on hold at 0900 for 1hr, to
restart at 1000 at 1400units/hr per protocol. Pt sitting up in bed eating breakfast at this time.
[2025-08-07 10:08] LABS: Blood Urea Nitrogen 21 mg/dl (9-20); Calcium 8.6 mg/dl (8.4-10.2); Carbon Dioxide 25 mmol/L (22-30); Chloride 106 mmol/L (98-107); Estimated Creatinine Clearance 71 ml/min; Glucose 139 mg/dl (70-99); Potassium 3.7 mmol/L (3.5-5.1); Sodium 137 mmol/L (135-145); eGFR > 60.00
--- NOTE | 2025-08-07 10:09 | W.PN.PUL3 ---
Today's Communication / Plan
-
Transition off heparin drip to Eliquis, 10 mg PO BID x 7 days, then 5mg BID after that
Outpatient hematology consultation for hypercoagulable workup and to assist decision regarding duration of AC
Patient ultimately will follow-up with hematology and any other providers in [place] where he is from
Outpatient pulmonary office follow-up for PFTs +/- 6MWT
Maintain SpO2 >90-94%
Pulmonary service will continue to follow along. Outpatient office follow-up will also be arranged, with full PFTs with DLco, and repeat echo to assess for improvement in right-sided pressures + RV size/function.
Assessment
-
Impression:
#Submassive PE with high risk features including RV strain (PESI score 105 � class III, intermediate risk: 3.2 - 7.1% 30-day mortality) s/p CDT � likely provoked from recent cross-country trip
#Acute respiratory failure with hypoxia + SOB due to above - hypoxia now resolved s/p CDT
#Hematuria, likely traumatic from straight catheterization insertion, possibly in setting of BPH
#History of LLE DVT (12/2023) involving popliteal vein + PT vein, treated with Eliquis for approximately 10 months
#DM type II complicated by hyperglycemia
#Obesity (BMI: 35.6)
#Former tobacco smoker with 5-6 pack year history, quit approximately 40 years ago
#History of PVCs
#Hypertension
Plan:
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
with RV strain
- He has both radiographic and chemical evidence of RV strain, and echo showed RV dilation and is hypocontractile with RV pressure and volume overload - patient brought to IR suite on evening of 08/05 for catheter directed thrombolysis
- Catheter directed thrombolysis stopped on 08/06; mPAP 23mmHg bilaterally on 08/05 and improved to mPAP 15 on 08/06
- Continue heparin gtt and ok to transition to Eliquis today
- PT/OT
- Check lower extremity duplex
- Maintain SpO2 >90-94% (now on room air breathing comfortably, saturating 96%)
- Recommend outpatient hematology evaluation to consider hypercoagulable testing given that this is his 2nd VTE event --> may need lifelong AC
- Continue home anti-HTN meds
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
- Maintain MAP>65
- Troponin peaked at 1.66 on 08/06; no longer need to continue trending at this time
- Lactate was 1.7 on 08/05; no longer need to continue trending at this time
- Replete electrolytes with K>4, Mg>2
- Maintain euglycemia with goal BG 140-180; HbA1c 7.4 on 08/06/2025
- Trend H/H and transfuse if needed to keep Hb>7-8g/dL; keep plt>50k (given his hematuria)
- Consult Urology due to hematuria; of note, he has had bloody urine in the past when he was treated for Eliquis for his DVT in 2023
- prn nebulized bronchodilators - not currently bronchospastic
- Incentive spirometer encouraged 10x per hour for at least 4 hrs a day
- DVT ppx: heparin gtt --> transitioning to Eliquis
Pulmonary service will continue to follow along. Outpatient office follow-up will also be arranged, with full PFTs with DLco, and repeat echo to assess for improvement in right-sided pressures + RV size/function.
Data:
CTA chest 08/05/2025: Multiple bilateral pulmonary emboli as described above. Severe clot burden. No right heart strain.
Total time spent today was 57 minutes for this encounter. Time includes reviewing laboratory test/imaging results, reviewing pertinent medical records, obtaining and reviewing medical history, performing an appropriate exam, ordering medications,
tests and procedures. Time also includes documentation of this encounter, coordinating patient care and communicating with other healthcare professionals. Total time does not include separately billed tests performed on this date of service.
Subjective Data
-
Date of Service:
Date of Service: August 07, 2025
Chief Complaint: Pulmonary Follow Up
Subjective:
Patient seen and evaluated today bedside. Catheter directed lysis stopped yesterday, and PA pressures improved from 44/11 to 28/5. He also subjectively felt better and his vitals also improved. This morning he is resting in bed in no acute
distress, BP 133/71, heart rate 77 and saturating 96% on room air. He is having bloody urine and he says this has happened to him the past when he was on Eliquis for DVT. Patient's and family friend also at bedside - all questions were
answered. Patient currently denies VANCE, chest pain, SOB, nausea, fevers or chills. He does have reduced energy overall.
Review of Systems
General: Other (Negative unless mentioned above)
Objective Data
Data Reviewed
Vital Signs / I&O / Oxygen:
Vital Signs
Temp Pulse Resp BP Pulse Ox
98.3 F 72 17 133/71 94
08/07/25 08:30 08/07/25 08:00 08/07/25 08:00 08/07/25 08:00 08/07/25 08:00
Intake and Output
08/06/25 08/07/25 08/08/25
06:59 06:59 06:59
Intake Total 1680 / 1785 1430 / 1448 36 / 36
Output Total 1000 / 1000 525 / 525
Balance 680 / 785 905 / 923 / 36
SaO2 94
Nasal Cannula flow liters per 2
minute
Physical Exam
General: Respiratory Distress (negative), Comfortable, Chills (negative) and Sweats (negative)
HEENT: Normocephalic, Anicteric and Other (Thick neck)
Cardiovascular: S1-S2 and Peripheral Edema (negative)
Respiratory: Wheeze (negative), Crackles (negative), Rhonchi (negative), Non-Labored Respirations and Stridor (negative)
GI: Soft, Distended (Abdominal obesity), Non Tender and Normal Bowel Sounds
Neurology: AO x 3 and Tremors (negative)
Skin: Warm, Dry, Cyanosis (negative) and Jaundice (negative)
Labs/Micro/Reports
Lab Data
08/07/25 08:39
08/07/25 08:39
Laboratory Results
08/06/25 08/06/25 08/06/25
11:46 14:02 16:00
PT 14.9 H
INR 1.14
APTT 32.7 Cancelled
pH Cancelled
pCO2 Cancelled
pO2 Cancelled
HCO3 Cancelled
O2 Delivery Level Cancelled
08/06/25 08/06/25 08/07/25
18:00 20:03 02:15
PT Cancelled
INR Cancelled
APTT Cancelled 116.0 H 107.6 H
pH
pCO2
pO2
HCO3
O2 Delivery Level
08/07/25
08:24
PT
INR
APTT 146.3 H
pH
pCO2
pO2
HCO3
O2 Delivery Level
[2025-08-07] MEDS: ELIQUIS 10 MG PO ×2 (11:26→21:30)
[2025-08-07] MEDS: PROSCAR 5 MG PO (12:17)
[2025-08-07] MEDS: NOVOLOG FLEXPEN-MODERATE RESISTANCE 1 UNITS SC ×2 (12:17→17:47)
[2025-08-07 12:18] LABS: Glucose - Point of Care 195 mg/dl (70-99)
--- NOTE | 2025-08-07 12:28 | PTCARENOTE ---
Pt started on Eliquis, Heparin gtts stopped 1 hr after given. Family at bedside, updated.
--- NOTE | 2025-08-07 12:36 | W.PN.URO.CBU ---
Today's Communication / Plan
-
observe for retention
Assessment / Plan
-
hematuria of unknown etiology possible stones possible bph pt clearly needs anticoagulation and the question becomes if he will have retention so far he is voiding well i will start finasteide in case bleeding is prostatic in origin observe fo
retention will obtain renal and bladder u/s
Diagnosis
-
Date of Service: August 07, 2025
-
Patient Diagnosis:
gross painless hematuria on heparin drip and eliquis for massive bilateal pulm emboli this same event with heturia on eliquis occurred also 8 - 9 months ago deirdre was neg in [place] and bleeding subsided 2 weeks without retention told he
may have stones
Post Op Day:
Subjective
-
hematuria no fdificulty voiding
Objective
-
Vital Signs
Temp Pulse Resp BP Pulse Ox
98.3 F 76 30 134/90 94
08/07/25 08:30 08/07/25 12:00 08/07/25 12:00 08/07/25 12:00 08/07/25 12:00
Intake and Output
08/06/25 08/07/25 08/08/25
06:59 06:59 06:59
Intake Total 1680 / 1785 1430 / 1448
Output Total 1000 / 1000 525 / 525
Balance 680 / 785 905 / 923
Intake:
Oral fluids 480 / 480 480 / 480
IV fluids (Total) 1100 / 1205 950 / 968
Nss 990 ml @ 1 MG/HR 100 mls/hr 1050 / 1150 600 / 600
INF CATH .Q10H ALEIDA with
Cathflo/Activase 10 mg Rx#:
[id number]
heparin 50 / 55 350 / 368
IV piggybacks 100 / 100
Output:
Urine, [place]e 500 / 500
Urine, Voided 0 / 0 525 / 525
Straight cath output 500 / 500
Other:
Number of approximated SMALL 1
amounts of urine
Number of approximated MODERATE 1 1
amounts of urine
Laboratory Results
08/07/25 08:39
08/07/25 08:39
Review of Systems
-
: Bleeding
Physical Exam
-
General - well developed, well nourished, no acute distress
Chest - clear bilaterally
Abdomen - soft, non-tender, positive bowel sounds, no CVAT, no incisional pain or distention
Genitalia - normal
Rectal - normal
Skin - warm & dry with no rash
Neuro - AOx3, no motor deficits
Extremities - no clubbing, no cyanosis, no edema
Incision - clean, dry
Dressing - clean, dry, intact
Care Review
Data Reviewed
Discussed with: Hospitalist, Nursing and Family
CT Scan: Image Pers Reviewed
[2025-08-07 17:41] LABS: Glucose - Point of Care 190 mg/dl (70-99)
--- NOTE | 2025-08-07 19:57 | PTCARENOTE ---
Report given to 2N RN. Pt transported via wheelchair with all of his belongings.
[2025-08-07] MEDS: LIDOCAINE 4% PATCH TOPICAL (21:31)
[2025-08-07 22:12] LABS: Glucose - Point of Care 135 mg/dl (70-99)
[2025-08-08 03:22] VITALS: BP 109/57
[2025-08-08 06:00] VITALS: BMI 35.4
[2025-08-08 06:46] LABS: Hematocrit 36.3 % (39.0-52.0); Hemoglobin 12.4 g/dL (13.0-18.0); Mean Corp Hgb Conc. 34.2 g/dL (33.0-37.0); Mean Corpuscular Volume 88.8 fL (80.0-94.0); Platelet Count 178 10^3/uL (130-400); Red Cell Dist. Width 12.6 % (11.5-14.5)
[2025-08-08 07:42] VITALS: BP 115/58
[2025-08-08 07:49] LABS: Glucose - Point of Care 119 mg/dl (70-99)
[2025-08-08] MEDS: NOVOLOG FLEXPEN-MODERATE RESISTANCE SC ×2 (07:51→18:36)
--- NOTE | 2025-08-08 08:44 | W.PN.HOSP.TC ---
Today's Communication/Plan
-
Discharge today after lower extremity Dopplers
Assessment / Plan
Assessment / Plan
HPI: 74-year-old male with a past medical history of left lower extremity DVT in December 2023, hypertension, diabetes, and obesity who presents with a 5-day history of shortness of breath. Patient drove cross-country from [place] to [place],
and reached this area approximately 13 days ago. He reports having 5 days of shortness of breath, which has since worsened. Associated symptoms include lightheadedness. He denies chest pain. Denies nausea, denies vomiting. No fever. He was
treated with Eliquis for his previous left lower extremity DVT in December 2023, and stopped Eliquis in October 2024.
#Acute hypoxic respiratory failure
#Acute bilateral PE with acute cor pulmonale due to severe clot burden
#History of acute left lower extremity DVT in December [address] shows 'Multiple bilateral pulmonary emboli as described above. Severe clot burden. No right heart strain'
Echo w/ EF 75%, dilated hypokinetic RV, elevated PA pressure
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
Discussed with patient, he would likely need anticoagulation lifelong
Currently requiring 2 L of oxygen, down from 15 L of oxygen, wean as tolerated
S/p IV heparin drip, continue Eliquis 10 mg twice a day for 7 days, then 5 mg twice a day
Cleared by pulmonology and urology for discharge today
Follow-up with hematology outpatient for hypercoagulable workup, follow-up with pulmonology in the office as well
Follow-up lower extremity Dopplers
#Hematuria
Appreciate urology input, started on finasteride
Check renal bladder ultrasound outpt, hematuria resolved
#Elevated troponin
Due to hypoxia, monitor
#Leukocytosis
Patient is afebrile, no signs or symptoms of infection
#Type 2 diabetes
Hgb A1c 7.4, continue home glipizide 10 mg daily, carb controlled diet, sliding scale insulin
#Essential hypertension
Continue hydrochlorothiazide 12.5 mg daily, losartan 50 mg daily
#Obesity due to excess calories
Affects all aspects of care
DVT prophylaxis�eliquis
Updated on phone 08/08
Physical Exam
General: Obese, no acute distress
HEENT: Normocephalic, Atraumatic, EOMI, MMM
Respiratory: Clear to Auscultation bilaterally
Cardiac: Normal S1/S2, Regular Rate and Rhythm
GI: Soft, Nontender, Nondistended, Normal Bowel Sounds
Extremities: No Clubbing, Cyanosis
Bilateral lower extremity edema, right greater than left
Neuro: Nonfocal/Grossly Intact
Anticipated Discharge: Today
Subjective/Interval History
-
Date of Service: August 07, 2025
Hematuria resolved. Shortness of breath resolved. No dyspnea with activity. No fever, no vomiting.
Objective Data
-
Labs:
Laboratory Results
08/07/25 08/07/25 08/07/25
08:24 08:39 16:00
WBC 7.3
Hgb 12.4 L
Hct 37.1 L
Plt Count 162
APTT 146.3 H Cancelled
Sodium 137
Potassium 3.7
Chloride 106
Carbon Dioxide 25
BUN 21 H
Creatinine 1.1
Glucose 139 H
Calcium 8.6
Vital Signs:
Vital Signs
Temp Pulse Resp BP Pulse Ox
98.8 F 76 30 134/90 94
08/07/25 12:30 08/07/25 12:00 08/07/25 12:00 08/07/25 12:00 08/07/25 12:00
I&O
08/06/25 08/07/25 08/08/25
06:59 06:59 06:59
Intake Total 1680 / 1785 1430 / 1448 318 / 318
Output Total 1000 / 1000 525 / 525
Balance 680 / 785 905 / 923 318 / 318
[2025-08-08] MEDS: PROSCAR 5 MG PO (09:40)
[2025-08-08] MEDS: ELIQUIS 10 MG PO (09:40)
[2025-08-08] MEDS: GLUCOTROL XL (EXTENDED RELEASE) 10 MG PO (09:40)
[2025-08-08] MEDS: ORETIC 12.5 MG PO (09:41)
[2025-08-08] MEDS: COZAAR 50 MG PO (09:41)
[2025-08-08] MEDS: REMOVE LIDOCAINE PATCH REMOVE (09:44)
--- NOTE | 2025-08-08 09:59 | W.PN.URO.CBU ---
Today's Communication / Plan
-
will order renal and bladder u/s
Assessment / Plan
-
hematuria of unknown etiology possible stones possible bph pt clearly needs anticoagulation and the question becomes if he will have retention so far he is voiding well i will start finasteide in case bleeding is prostatic in origin observe fo
retention will obtain renal and bladder u/s
Diagnosis
-
Date of Service: August 08, 2025
-
Patient Diagnosis:
Post Op Day:
Patient Diagnosis:
gross painless hematuria on heparin drip and eliquis for massive bilateal pulm emboli this same event with heturia on eliquis occurred also 8 - 9 months ago eval was neg in [place] and bleeding subsided 2 weeks without retention told he
may have stones
Post Op Day:
Subjective
-
bleeding stopped
Objective
-
Vital Signs
Temp Pulse Resp BP Pulse Ox
98.9 F 74 16 115/58 96
08/08/25 07:42 08/08/25 07:42 08/08/25 07:42 08/08/25 07:42 08/08/25 07:42
Intake and Output
08/07/25 08/08/25 08/09/25
06:59 06:59 06:59
Intake Total 1430 / 1448 1038 / 1038
Output Total 525 / 525
Balance 905 / 923 1038 / 1038
Intake:
Oral fluids 480 / 480 960 / 960
IV fluids (Total) 950 / 968
Nss 990 ml @ 1 MG/HR 100 mls/hr 600 / 600
INF CATH .Q10H ALEIDA with
Cathflo/Activase 10 mg Rx#:
[id number]
heparin 350 / 368
Output:
Urine, Voided 525 / 525
Other:
Number of approximated SMALL 1
amounts of urine
Number of approximated MODERATE 1 2
amounts of urine
Number of approximated LARGE 1
amounts of urine
Laboratory Results
08/08/25 05:56
08/07/25 08:39
Review of Systems
-
: No Symptoms
Physical Exam
-
General - well developed, well nourished, no acute distress
Chest - clear bilaterally
Abdomen - soft, non-tender, positive bowel sounds, no CVAT, no incisional pain or distention
Genitalia - normal
Rectal - normal
Skin - warm & dry with no rash
Neuro - AOx3, no motor deficits
Extremities - no clubbing, no cyanosis, no edema
Incision - clean, dry
Dressing - clean, dry, intact
[2025-08-08 11:05] VITALS: BP 130/76
[2025-08-08 11:10] VITALS: BP 130/76; PULSE 72; PULSE 74; O2SAT 96; O2SAT 97
[2025-08-08 14:01] LABS: Glucose - Point of Care 166 mg/dl (70-99)
[2025-08-08] MEDS: NOVOLOG FLEXPEN-MODERATE RESISTANCE 1 UNITS SC (14:14)
--- NOTE | 2025-08-08 14:26 | W.DCSUMMARY ---
Discharge Summary
Discharge Data
Date of Admission: 08/05/25
Date of Discharge: 08/08/25
-
Pending Results: Yes
Additional Pending Results:
LE dopplers
Hospital Course
Discharge diagnosis:
Acute hypoxic respiratory failure
Acute bilateral pulmonary emboli with acute cor pulmonale due to severe clot burden
History of acute left lower extremity deep vein thrombosis in December 2023
Acute hematuria
Elevated troponin due to hypoxia
Leukocytosis
Type 2 diabetes
Essential hypertension
Obesity due to excess calories
Consults: Pulmonology, IR, urology
Chest CT:
Multiple bilateral pulmonary emboli as described above. Severe clot burden. No right heart strain.
If the patient has emphysema, patient should be assessed for an annual low dose lung cancer CT program, as pulmonary emphysema is an independent risk factor for lung cancer.
Echo:
SUMMARY
1. Normal left ventricular systolic function. Estimated ejection fraction 65 to 70%.
2. Septal flattening.
3. Asymmetric septal hypertrophy
4. Dilated hypokinetic right ventricle.
5. Mild to moderate tricuspid regurgitation.
6. Estimated PA pressure 38 to 43 mmHg.
7. Mildly dilated aortic root mildly dilated aortic root sinus of Valsalva 4.1 cm.
Procedures:
08/05/2025 catheter directed thrombolysis
Hospital course:
74-year-old male with a past medical history of left lower extremity DVT in December 2023, diabetes, hypertension, and obesity was admitted for acute hypoxic respiratory failure secondary to acute bilateral pulmonary emboli with acute cor pulmonale
after driving cross-country to [place] from [place]. Patient was seen in conjunction with pulmonology, and treated with an IV heparin drip. He initially required 15 L of oxygen. Echocardiogram showed a dilated hypokinetic right ventricle
and right heart strain. He received catheter directed thrombolysis by interventional radiology. He did well postprocedure, and was transitioned to Eliquis. Patient was successfully weaned to room air.
Patient's hospital course was complicated by mild hematuria. He was seen in conjunction with urology. Finasteride was added. His hematuria resolved. Urology recommends outpatient renal bladder ultrasound, as well as follow-up in the office.
Patient is medically stable and cleared by urology and pulmonology for discharge. He needs to follow-up with hematology in the office for hypercoagulable workup, as well as urology/pulmonology. He can continue Eliquis 10 mg twice a day for 7 days,
then 5 mg twice a day.
Disposition: Home self-care
Discharge planning: Required 41 minutes
Discharge Plan
-
Patient Disposition: Home (Routine Discharge)
Discharge Diagnosis/Procedures: Acute hypoxic respiratory failure, acute pulmonary emboli, hematuria
Diet: Low Fat, Low Cholesterol and Diabetic, Carb Controlled
Activity: As tolerated
Driving Restrictions: As prior to admission
Others Tests: Renal Bladder ultrasound - script provided
Activity Restrictions/Additional Instructions:
Please follow-up with your PCP in 1 week, pulmonology/urology in 2-3 weeks, and hematology/ Dr Lu as well.
Referrals:
Steve Persaud MD [Active, Pulmonary Medicine] - in two to three weeks
Cody Jefferson MD [Active, Urology] - in two to three weeks
Geraldine Lu MD [Active, Oncology] - in two to three weeks
Emiliano Greco DO [Family Provider, Family Practice]
Prescriptions:
New
finasteride 5 mg Tablet
5 mg PO DAILY Qty: 30 0RF
Eliquis 5 mg tablet
See Rx Instructions .ROUTE .COMPLEX Qty: 90 0RF
Rx Instructions:
Take 2 tabs BID thru 08/13, then 1 tab BID
Continued
losartan 50 mg Tablet
50 mg PO DAILY
therapeutic multivitamin Tablet
1 tab PO DAILY
ascorbic acid (vitamin C) [Vitamin C] 500 mg Tablet
500 mg PO DAILY
cholecalciferol (vitamin D3) [Vitamin D3] 25 mcg (1,000 unit) Tablet
25 mcg PO DAILY
hydrochlorothiazide 12.5 mg Tablet
12.5 mg PO DAILY
Cholest Off Plus 450 mg Capsule
450 mg PO DAILY
Glucosamine Chondroitin 550-30-1 mg Capsule
1 cap PO DAILY
glipizide 10 mg Tablet Extended Release 24hr
10 mg PO DAILY
Discharge Orders:
Discharge Patient (As Directed); Ordered 08/08/25
Ordered By: Rick Negrete
Discharge Date and Time
Print Language: UZBEK
--- NOTE | 2025-08-08 15:20 | CM ---
CM following re: discharge planning.
Reviewed pt's chart, met with pt.
Discharge order noted. Pt is aware, expressed his agreement with discharge and he stated his spouse will transport home.
IMM reviewed, placed on chart, pt has a copy.
PT and OT evaluations noted - pt has no skilled PT/OT needs.
No after care VN services indicated.
D/C plan: home no needs. Spouse to transport.
[2025-08-08 15:47] VITALS: BP 127/68
--- NOTE | 2025-08-08 16:43 | W.PN.PUL3 ---
Today's Communication / Plan
-
Continue NOAC for with Eliquis, 10 mg PO BID x 7 days, then 5mg BID after that
Outpatient hematology consultation for hypercoagulable workup and to assist decision regarding duration of AC
Patient ultimately will follow-up with hematology and any other providers in [place] where he is from
Outpatient pulmonary office will be arranged for follow-up for PFTs +/- 6MWT
Maintain SpO2 >90-94%
Patient stable for discharge from pulmonary perspective. Outpatient office follow-up will be arranged, with full PFTs with DLco, and repeat echo to assess for improvement in right-sided pressures + RV size/function. He ultimately will follow
specialists in [place]. Signing off. Call back with any questions or concerns.
Assessment
-
#Submassive PE with high risk features including RV strain (PESI score 105 � class III, intermediate risk: 3.2 - 7.1% 30-day mortality) s/p CDT � likely provoked from recent cross-country trip
#Acute respiratory failure with hypoxia + SOB due to above - hypoxia now resolved s/p CDT
#Hematuria, likely traumatic from straight catheterization insertion, possibly in setting of BPH - now resolved
#History of LLE DVT (12/2023) involving popliteal vein + PT vein, treated with Eliquis for approximately 10 months
#DM type II complicated by hyperglycemia
#Obesity (BMI: 35.6)
#Former tobacco smoker with 5-6 pack year history, quit approximately 40 years ago
#History of PVCs
#Hypertension
Plan:
- Patient recently drove cross-country (07/14 - 07/25), drove 3700 miles and only took a break approximately every 500 miles; experienced worsening SOB over the 24 hours [employer] with CTA chest showing bilateral pulmonary embolism (worse on the left side)
with RV strain
- He has both radiographic and chemical evidence of RV strain, and echo showed RV dilation and is hypocontractile with RV pressure and volume overload - patient brought to IR suite on evening of 08/05 for catheter directed thrombolysis
- Catheter directed thrombolysis ended on 08/06; mPAP 23mmHg bilaterally on 08/05 and improved to mPAP 15 on 08/06
- Now on Eliquis
- PT/OT
- Check lower extremity duplex --> shows bilateral DVT involving popliteal veins and left PT vein
- Maintain SpO2 >90-94% (now on room air breathing comfortably, saturating 95-96%)
- Recommend outpatient hematology evaluation to consider hypercoagulable testing given that this is his 2nd VTE event --> may need lifelong AC
- Continue home anti-HTN meds
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
- Maintain MAP>65
- Troponin peaked at 1.66 on 08/06; no longer need to continue trending at this time
- Lactate was 1.7 on 08/05; no longer need to continue trending at this time
- Replete electrolytes with K>4, Mg>2
- Maintain euglycemia with goal BG 140-180; HbA1c 7.4 on 08/06/2025
- Trend H/H and transfuse if needed to keep Hb>7-8g/dL; keep plt>50k (given his recent hematuria)
- Urology consulted due to hematuria; of note, he has had bloody urine in the past when he was treated for Eliquis for his DVT in 2023
- Renal and bladder US requested - can be done as an outpatient
- prn nebulized bronchodilators - not currently bronchospastic
- Incentive spirometer encouraged 10x per hour for at least 4 hrs a day
- DVT ppx: Eliquis
Patient stable for discharge from pulmonary perspective. Outpatient office follow-up will be arranged, with full PFTs with DLco, and repeat echo to assess for improvement in right-sided pressures + RV size/function. He ultimately will follow
specialists in [place]. Signing off. Call back with any questions or concerns.
Data:
CTA chest 08/05/2025: Multiple bilateral pulmonary emboli as described above. Severe clot burden. No right heart strain.
LE Duplex US 08/08/2025:
Sonographic evidence for nonocclusive thrombus in the right popliteal vein, and the left popliteal and posterior tibial veins.
Patient with known pulmonary thromboembolus.
Total time spent today was 27 minutes for this encounter. Time includes reviewing laboratory test/imaging results, reviewing pertinent medical records, obtaining and reviewing medical history, performing an appropriate exam, ordering medications,
tests and procedures. Time also includes documentation of this encounter, coordinating patient care and communicating with other healthcare professionals. Total time does not include separately billed tests performed on this date of service.
Subjective Data
-
Date of Service:
Date of Service: August 08, 2025
Chief Complaint: Pulmonary Follow Up
Subjective:
Pt seen and evaluated this AM (late note entry). He is sitting in a chair, in NAD. Breathing comfortably on room air. He is no longer having bloody urine - resolved as of last night.
Patient was seen and evaluated on 08/08/2025.
Review of Systems
General: Other (Negative unless mentioned above)
Objective Data
Data Reviewed
Vital Signs / I&O / Oxygen:
Vital Signs
Temp Pulse Resp BP Pulse Ox
98.9 F 74 16 115/58 96
08/08/25 07:42 08/08/25 07:42 08/08/25 07:42 08/08/25 07:42 08/08/25 07:42
Intake and Output
08/07/25 08/08/25 08/09/25
06:59 06:59 06:59
Intake Total 1430 / 1448 1038 / 1038
Output Total 525 / 525
Balance 905 / 923 1038 / 1038
SaO2 96
Nasal Cannula flow liters per 2
minute
Physical Exam
General: Respiratory Distress (negative), Comfortable, Chills (negative) and Sweats (negative)
HEENT: Normocephalic, Anicteric and Other (Thick neck)
Cardiovascular: S1-S2 and Peripheral Edema (negative)
Respiratory: Clear, Wheeze (negative), Crackles (negative), Rhonchi (negative), Non-Labored Respirations and Stridor (negative)
GI: Soft, Distended (Abdominal obesity), Non Tender and Normal Bowel Sounds
Neurology: AO x 3 and Tremors (negative)
Skin: Warm, Dry, Cyanosis (negative) and Jaundice (negative)
Labs/Micro/Reports
Lab Data
08/08/25 05:56
08/07/25 08:39
Laboratory Results
08/07/25
16:00
APTT Cancelled
== END 2025-08-08 19:16 | disposition home or self-care (01) | DRG 175 ==
LOC: 2 NORTH 12:33
PROVIDERS: Physician Assistant Medical; Radiology Vascular & Interventional Radiology; ADMITTING PHYSICIAN Family Medicine; CONSULT PHYSICIAN Internal Medicine Critical Care Medicine; CONSULT PHYSICIAN Specialist; EMERGENCY PHYSICIAN Emergency Medicine; FAMILY PHYSICIAN Family Medicine Sports Medicine
PROC: 3E06317 Introduction of Other Thrombolytic into Central Artery, Percutaneous Approach (ICD-10-PCS; 2025-08-05)
DX: I26.09 Other pulmonary embolism with acute cor pulmonale (principal); J96.01 Acute respiratory failure with hypoxia; I10 Essential (primary) hypertension; E66.09 Other obesity due to excess calories; R61 Generalized hyperhidrosis; E11.65 Type 2 diabetes mellitus with hyperglycemia; D72.829 Elevated white blood cell count, unspecified; R31.0 Gross hematuria; N40.0 Benign prostatic hyperplasia without lower urinary tract symptoms; R79.89 Other specified abnormal findings of blood chemistry; I77.810 Thoracic aortic ectasia; I07.1 Rheumatic tricuspid insufficiency; Z87.891 Personal history of nicotine dependence; Z82.49 Family history of ischemic heart disease and other diseases of the circulatory system; Z82.5 Family history of asthma and other chronic lower respiratory diseases; Z79.84 Long term (current) use of oral hypoglycemic drugs; Z79.899 Other long term (current) drug therapy; Z86.711 Personal history of pulmonary embolism; Z68.35 Body mass index [BMI] 35.0-35.9, adult; Z86.718 Personal history of other venous thrombosis and embolism; Z87.442 Personal history of urinary calculi
CPT/HCPCS: 36014; 36620; 37211; 37214; 71275; 75743; 76937; 80048; 80053; 82607; 82805; 82962; 83036; 83605; 83735; 83880; 84484; 85025; 85027; 85610; 85730; 93005; 93306; 93970; 96365; 97162; 97166; 99291; C1769; J2997; Q9950; Q9967

== ENCOUNTER → 2025-09-20 13:46 | Outpatient (REF) | payer OTHER, SELFPAY | LOC: HWRCS 13:46 | PROVIDERS: ATTENDING PHYSICIAN Internal Medicine Critical Care Medicine | DX: I26.09 Other pulmonary embolism with acute cor pulmonale (principal); I51.9 Heart disease, unspecified | CPT/HCPCS: 93306 ==